=== PATIENT | male | born 1935 | race Caucasian/White ===

== ENCOUNTER 2017-03-11 18:29 | Emergency (ER) | payer MEDICARE, BC ==
--- NOTE | 2017-03-11 19:57 | ER Document Report ---
ED Medical Screen (RME) - General Chief Complaint: Choked/Choking Stated Complaint: WHEEZING Time Seen by Provider: 03/11/17 19:44 Notes: 81-year-old male here with complaints of left-sided chest wall pain (after slipping on the ice and falling on that side) over the past 7 days. Over the past few days he has had prog worsening cough prod of brown sputum. Has a prior h/o pneumonia. DNR. Per family, normally O2 sats are near 100% and he does not wear home oxygen. EXAM Mild tenderness to palpation of the left lateral chest wall along the mid axillary line more prominent superiorly along ribs 4 5 and 6 TRAVEL OUTSIDE OF THE [place] IN LAST 30 DAYS: No - Related Data Allergies/Adverse Reactions: onion Allergy (Verified 03/11/17 18:31) Home Medications: Current Home Medications Alprazolam 0.5 mg PO BID 03/11/17 [History] Aspirin [Adult Aspirin Regimen] 81 mg PO DAILY 03/11/17 [History] Aspirin [Aspirin 325 mg Tablet] 325 mg PO DAILY PRN 03/11/17 [History] Atenolol [Tenormin] 25 mg PO DAILY 03/11/17 [History] Cetirizine HCl [Zyrtec] 10 mg PO DAILY 03/11/17 [History] Diazepam 5 mg PO PRN PRN 03/11/17 [History] Famciclovir 250 mg PO BID 03/11/17 [History] Hyoscyamine Sulfate 0.125 mg PO AC 03/11/17 [History] Omeprazole 40 mg PO DAILY 03/11/17 [History] Past Medical History - Social History Chew tobacco use (# tins/day): No Frequency of alcohol use: None Drug Abuse: None - Past Medical History Cardiac Medical History: Reports: Hx Hypertension Pulmonary Medical History: Reports: Hx Pneumonia - ASPIRATION Neurological Medical History: Reports: Hx Cerebrovascular Accident - TIAs. 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 Psychiatric Medical History: Denies: Hx Depression Past Surgical History: Reports: Hx Abdominal Surgery - GTUBE REMOVED, Hx Cholecystectomy, Other - PEG tube and removal - Immunizations Hx Diphtheria, Pertussis, Tetanus Vaccination: Yes Physical Exam - Vital signs Vitals: Temp Pulse Resp BP Pulse Ox 98.5 F 62 24 H 141/74 H 91 L 03/11/17 18:54 03/11/17 18:54 03/11/17 18:54 03/11/17 18:54 03/11/17 18:54 Course - Vital Signs Vital signs: Temp Pulse Resp BP Pulse Ox 98.5 F 62 24 H 141/74 H 91 L 03/11/17 18:54 03/11/17 18:54 03/11/17 18:54 03/11/17 18:54 03/11/17 18:54
[2017-03-11 20:47] LABS: ABSOLUTE BASOPHILS # (AUTO) 0.1 10^3/uL (0.0-0.2); ABSOLUTE EOSINOPHILS # (AUTO) 0.1 10^3/uL (0.0-0.6); ABSOLUTE NEUT (AUTO) 12.6 10^3/uL (1.7-8.2); BASOPHILS % (AUTO) 0.7 % (0-2); EOSINOPHILS % (AUTO) 0.7 % (0-6); HEMATOCRIT 41.8 % (37.9-51.0); HEMOGLOBIN 14.1 g/dL (13.5-17.0); LYMPHOCYTES % (AUTO) 12.7 % (13-45); MEAN CORPUSCULAR HEMOGLOBIN 29.9 pg (27.0-33.4); MEAN CORPUSCULAR HGB CONC 33.6 g/dL (32.0-36.0); MEAN CORPUSCULAR VOLUME 89 fl (80-97); MONOCYTES % (AUTO) 6.1 % (3-13); PLATELET COUNT 244 10^3/uL (150-450); RED BLOOD COUNT 4.69 10^6/uL (4.35-5.55); RED CELL DISTRIBUTION WIDTH 12.9 % (11.5-14.0); SEGMENTED NEUTROPHILS % (AUTO) 79.8 % (42-78); TOTAL CELLS COUNTED % (AUTO) 100 %; WHITE BLOOD COUNT 15.9 10^3/uL (4.0-10.5)
--- NOTE | 2017-03-11 21:00 | RADIOLOGY REPORT (SQ) ---
EXAM DESCRIPTION: CT CHEST WITHOUT COMPLETED DATE/TIME: 03/11/2017 8:35 pm REASON FOR STUDY: s/p fall; eval rib fracture pneumonia COMPARISON: 02/10/2016. No current chest radiograph. TECHNIQUE: CT scan performed of the chest without intravenous contrast. Images reviewed with lung, soft tissue and bone windows. Reconstructed coronal and sagittal MPR images reviewed. All images st ored on PACS. All CT scanners at this facility use dose modulation, iterative reconstruction, and/or weight based d osing when appropriate to reduce radiation dose to as low as reasonably achievable (ALARA). [facility]: Dose Right [facility]: CareDose [facility]: Dose Right [facility]: Teradose 4D [facility]: Smart Jimmy Fairly RADIATION DOSE: CT Rad equipment meets quality standard of care and radiation dose reduction techniq ues were employed. CTDIvol: 12.2 mGy. DLP: 491 mGy-cm. mGy. LIMITATIONS: No technical limitations. FINDINGS: LUNGS AND PLEURA: Diffuse patchy ground-glass opacities throughout both lungs. No pneumot horax. HILAR AND MEDIASTINAL STRUCTURES: No identified masses or abnormal nodes. No obvious aneurysm. HEART AND VASCULAR STRUCTURES: Aortic ectasia. Extensive coronary artery calcification. UPPER ABDOMEN: No significant findings. Limited exam. THYROID AND OTHER SOFT TISSUES: No masses. No adenopathy. BONES: No significant finding. HARDWARE: None in the chest. OTHER: No other significant findings. IMPRESSION: Diffuse patchy ground-glass opacities throughout both lungs. Consistent with pneumonia. Extensive coronary artery calcification. No displaced fractures. TECHNICAL DOCUMENTATION: JOB ID: [id number] Quality ID # [id number]: Final reports with documentation of one or more dose reduction techniques (e.g., Au tomated exposure control, adjustment of the mA and/or kV according to patient size, use of iterative reconstruction technique) 2010 [employer]- All Rights Reserved
[2017-03-11 21:08] LABS: ANION GAP 12 (5-19); BLOOD UREA NITROGEN 19 mg/dL (7-20); CALCIUM 9.8 mg/dL (8.4-10.2); CARBON DIOXIDE 28 mmol/L (22-30); CHLORIDE 99 mmol/L (98-107); GLUCOSE 121 mg/dL (75-110); POTASSIUM 4.1 mmol/L (3.6-5.0); SODIUM 139.2 mmol/L (137-145)
[2017-03-11] MEDS ORDERED: CEFTRIAXONE 1 GM/D5W RTU 1 GM/50 ML RTUPB IV ONE (22:55)
--- NOTE | 2017-03-11 23:11 | ER Document Report ---
ED General - General Chief Complaint: Choked/Choking Stated Complaint: WHEEZING Time Seen by Provider: 03/11/17 19:44 Mode of Arrival: Ambulatory Information source: Patient Notes: 81-year-old male presents with complaints of cough over the past for 5 days with productive sputum. Family notes patient looks well is in no distress, they deny any fevers or chills denies any shortness of breath difficulty breathing TRAVEL OUTSIDE OF THE [place] IN LAST 30 DAYS: No - HPI Onset: Last week Onset/Duration: Persistent Quality of pain: Achy - Patient did fall and has left anterior rib pain Severity: Mild Pain Level: 1 Associated symptoms: Productive cough Exacerbated by: Denies Relieved by: Denies Similar symptoms previously: No Recently seen / treated by doctor: No - Related Data Allergies/Adverse Reactions: onion Allergy (Verified 03/11/17 18:31) Home Medications: Current Home Medications Alprazolam 0.5 mg PO BID 03/11/17 [History] Aspirin [Adult Aspirin Regimen] 81 mg PO DAILY 03/11/17 [History] Aspirin [Aspirin 325 mg Tablet] 325 mg PO DAILY PRN 03/11/17 [History] Atenolol [Tenormin] 25 mg PO DAILY 03/11/17 [History] Cetirizine HCl [Zyrtec] 10 mg PO DAILY 03/11/17 [History] Diazepam 5 mg PO PRN PRN 03/11/17 [History] Famciclovir 250 mg PO BID 03/11/17 [History] Hyoscyamine Sulfate 0.125 mg PO AC 03/11/17 [History] Omeprazole 40 mg PO DAILY 03/11/17 [History] Past Medical History - Social History Smoking Status: Former Smoker Cigarette use (# per day): No Chew tobacco use (# tins/day): No Smoking Education Provided: No Frequency of alcohol use: None Drug Abuse: None Family History: DM, Hypertension Patient has suicidal ideation: No Patient has homicidal ideation: No - Past Medical History Cardiac Medical History: Reports: Hx Hypertension Pulmonary Medical History: Reports: Hx Pneumonia - ASPIRATION Neurological Medical History: Reports: Hx Cerebrovascular Accident - TIAs. 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 Denies recent illness. EENT: Denies eye, ear, throat, or mouth pain or symptoms. Denies nasal or sinus congestion or discharge. Denies throat, tongue, or mouth swelling or difficulty swallowing. CARDIOVASCULAR: Denies chest pain. Denies palpitations or racing or irregular heart beat. Denies ankle edema. RESPIRATORY: Admits to productive cough GASTROINTESTINAL: Admits to dysphasia GENITOURINARY: Denies difficulty urinating, painful urination, burning, frequency, blood in urine, or discharge. MUSCULOSKELETAL: Denies back or neck pain or stiffness. Denies joint pain or swelling. SKIN: Denies rash, lesions or sores. HEMATOLOGIC : Denies easy bruising or bleeding. LYMPHATIC: Denies swollen, enlarged glands. NEUROLOGICAL: Denies confusion or altered mental status. Denies passing out or loss of consciousness. Denies dizziness or lightheadedness. Denies headache. Denies weakness or paralysis or loss of use of either side. Denies problems with gait or speech. Denies sensory loss, numbness, or tingling. Denies seizures. PSYCHIATRIC: Denies anxiety or stress. Denies depression, suicidal ideation, or homicidal ideation. ALL OTHER SYSTEMS REVIEWED AND NEGATIVE. Dictation was performed using [employer] voice recognition software PHYSICAL EXAMINATION: GENERAL: Well-appearing, well-nourished and in no acute distress. HEAD: Atraumatic, normocephalic. EYES: Pupils equal round and reactive to light, extraocular movements intact, sclera anicteric, conjunctiva are normal. ENT: Nares patent, oropharynx clear without exudates. Moist mucous membranes. NECK: Normal range of motion, supple without lymphadenopathy LUNGS: Intermittent crackles all throughout HEART: Regular rate and rhythm without murmurs ABDOMEN: Soft, nontender, nondistended abdomen. No guarding, no rebound. No masses appreciated. Musculoskeletal: Normal range of motion, no pitting or edema. No cyanosis. NEUROLOGICAL: Cranial nerves grossly intact. Normal speech, normal gait. Normal sensory, motor exams PSYCH: Normal mood, normal affect. SKIN: Warm, Dry, normal turgor, no rashes or lesions noted. Physical Exam - Vital signs Vitals: Temp Pulse Resp BP Pulse Ox 98.5 F 62 24 H 141/74 H 91 L 03/11/17 18:54 03/11/17 18:54 03/11/17 18:54 03/11/17 18:54 03/11/17 18:54 Course - Re-evaluation Re-evalutation: 03/11/17 23:09 Patient looks extremely well, he is noted to have a white count and was initially satting 91% however when I walk into the room is actually satting 96% no distress, I discussed with family regarding admission versus discharge, they preferred to be discharged and I believe this is appropriate, he has 24-hour care which will give him very close follow-up at home, he will be given antibiotics here and will be treated for his pneumonia. We spoke about nosocomial infections and I believe he would worsen while in the hospital. Given that he is not hypoxic he looks well and wishes to be discharged home I will discharge him with close follow-up and very strict return precautions. Patient will also be given a GI specialist for his esophageal spasms 03/12/17 00:56 After performing a Medical Screening Examination, I estimate there is LOW risk for ACUTE CORONARY SYNDROME, PULMONARY EMBOLI, RESPIRATORY FAILURE, SEPSIS OR MENINGITIS, thus I consider the discharge disposition reasonable. I have reevaluated this patient multiple times and no significant life threatening changes are noted. The patient and I have discussed the diagnosis and risks, and we agree with discharging home with close follow-up. We also discussed returning to the Emergency Department immediately if new or worsening symptoms occur. We have discussed the symptoms which are most concerning (e.g., changing or worsening pain, trouble swallowing or breathing, neck stiffness, fever) that necessitate immediate return. - Vital Signs Vital signs: Temp Pulse Resp BP Pulse Ox 98.5 F 62 23 H 147/85 H 94 03/11/17 18:54 03/11/17 18:54 03/11/17 23:01 03/11/17 23:01 03/11/17 23:01 - Laboratory Result Diagrams: 03/11/17 20:23 03/11/17 20:23 Laboratory results interpreted by me: 03/11/17 03/11/17 20:23 20:23 WBC 15.9 H Seg Neutrophils % 79.8 H Lymphocytes % 12.7 L Absolute Neutrophils 12.6 H Glucose 121 H - Diagnostic Test Radiology reviewed: Image reviewed, Reports reviewed Discharge - Discharge Clinical Impression: Bilateral pneumonia Qualifiers: Pneumonia type: due to Escherichia coli Lung location: lower lobe of lung Qualified Code(s): J15.5 - Pneumonia due to Escherichia coli Dysphagia Qualifiers: Dysphagia type: esophageal phase Qualified Code(s): R13.10 - Dysphagia, unspecified Condition: Stable Disposition: HOME, SELF-CARE Instructions: Dysphagia (OM) Prescriptions: Levofloxacin [Levaquin 500 mg Tablet] 500 mg PO DAILY #10 tablet Referrals: DANIELLE MOTLEY MD [ACTIVE STAFF] - Follow up tomorrow
[2017-03-11] MEDS ORDERED: CEFTRIAXONE INJ 1000 MG VIAL IM ONE (23:45)
[2017-03-11] MEDS ORDERED: LIDOCAINE 1% INJ-PF (10 MG/ML) 30 ML SDV INFIL ONE (23:45)
[2017-03-11 23:53] VITALS: BP 147/85
== END 2017-03-11 23:55 | disposition home or self-care (01) ==
LOC: ER 18:29
DX: J15.5 Pneumonia due to Escherichia coli (principal); R13.10 Dysphagia, unspecified; T17.908A Unspecified foreign body in respiratory tract, part unspecified causing other injury, initial encounter; R05 Cough; R07.81 Pleurodynia; X58.XXXA Exposure to other specified factors, initial encounter; Z79.899 Other long term (current) drug therapy; Z87.891 Personal history of nicotine dependence
CPT/HCPCS: 99285; 96372; 36415; 87040; 83605; 85025; 80048; 71250; J3490; J0696

== ENCOUNTER 2017-03-13 19:17 | Inpatient (IN) | payer MEDICARE, BC ==
[2017-03-13 20:46] LABS: VENOUS BLOOD BASE EXCESS 2.8 mmol/L; VENOUS BLOOD HCO3 30.8 mmol/L (20-32); VENOUS BLOOD PCO2 61.7 mmHg (35-63); VENOUS BLOOD PH 7.32 (7.30-7.42)
[2017-03-13 21:21] LABS: PROTHROMBIN TIME 13.9 SEC (11.4-15.4)
[2017-03-13] MEDS ORDERED: PIPERACILLIN/TAZOBACTAM 3.375 GM VIAL IV ONE (21:25)
--- NOTE | 2017-03-13 21:26 | RADIOLOGY REPORT (SQ) ---
EXAM DESCRIPTION: CHEST SINGLE VIEW COMPLETED DATE/TIME: 03/13/2017 9:08 pm REASON FOR STUDY: SEPSIS PROTOCOL COMPARISON: Chest CT dated 03/11/2017. EXAM PARAMETERS: NUMBER OF VIEWS: One view. TECHNIQUE: Single frontal radiographic view of the chest acquired. RADIATION DOSE: NA LIMITATIONS: None. FINDINGS: LUNGS AND PLEURA: Patchy opacities in both lungs with more focal infiltrate in the right u pper lobe. No pleural effusion. No pneumothorax. MEDIASTINUM AND HILAR STRUCTURES: No masses. Contour normal. HEART AND VASCULAR STRUCTURES: Heart normal in size. Normal vasculature. BONES: No acute findings. HARDWARE: Clips in the upper abdomen. OTHER: No other significant finding. IMPRESSION: PATCHY INFILTRATES CONSISTENT WITH PNEUMONIA, PARTICULARLY IN THE RIGHT UPPER LOBE. SIM ILAR APPEARANCE TO THE PREVIOUS CT TECHNICAL DOCUMENTATION: JOB ID: [id number]- All Rights Reserved
[2017-03-13 21:27] LABS: ABSOLUTE BASOPHILS # (AUTO) 0.1 10^3/uL (0.0-0.2); ABSOLUTE EOSINOPHILS # (AUTO) 0.1 10^3/uL (0.0-0.6); ABSOLUTE LYMPHOCYTES (AUTO) 0.9 10^3/uL (0.5-4.7); ABSOLUTE MONOCYTES (AUTO) 0.8 10^3/uL (0.1-1.4); ABSOLUTE NEUT (AUTO) 11.7 10^3/uL (1.7-8.2); BASOPHILS % (AUTO) 0.4 % (0-2); EOSINOPHILS % (AUTO) 0.7 % (0-6); HEMATOCRIT 46.9 % (37.9-51.0); HEMOGLOBIN 15.6 g/dL (13.5-17.0); LYMPHOCYTES % (AUTO) 6.4 % (13-45); MEAN CORPUSCULAR HGB CONC 33.3 g/dL (32.0-36.0); MEAN CORPUSCULAR VOLUME 90 fl (80-97); MONOCYTES % (AUTO) 5.7 % (3-13); PLATELET COUNT 333 10^3/uL (150-450); RED CELL DISTRIBUTION WIDTH 13.2 % (11.5-14.0); SEGMENTED NEUTROPHILS % (AUTO) 86.8 % (42-78); TOTAL CELLS COUNTED % (AUTO) 100 %; WHITE BLOOD COUNT 13.5 10^3/uL (4.0-10.5)
--- NOTE | 2017-03-13 21:31 | ER Document Report ---
ED General - General Stated Complaint: DIFFICULTY BREATHING Time Seen by Provider: 03/13/17 21:16 Mode of Arrival: Medic Information source: Patient, Relative - daughter [place] TRAVEL OUTSIDE OF THE [place] IN LAST 30 DAYS: No - HPI Patient complains to provider of: sob/pneumonia Onset: Other - 3 days ago Onset/Duration: Gradual, Worse Quality of pain: No pain Associated symptoms: Chills, Productive cough, Shortness of breath, Weakness Exacerbated by: Movement, Coughing Relieved by: Denies Similar symptoms previously: Yes - Here tuesday night dxed with PNA Recently seen / treated by doctor: Yes - as above - Related Data Allergies/Adverse Reactions: onion Allergy (Verified 03/11/17 18:31) Past Medical History - General Information source: Patient, Relative - Social History Smoking Status: Former Smoker - quit 1980s Lives with: Family - with 24 hour care Family History: DM, Hypertension Patient has suicidal ideation: No Patient has homicidal ideation: No - Past Medical History Cardiac Medical History: Reports: Hx Hypertension Pulmonary Medical History: Reports: Hx Pneumonia - ASPIRATION Neurological Medical History: Reports: Hx Cerebrovascular Accident - TIAs. 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 Psychiatric Medical History: Denies: Hx Depression Past Surgical History: Reports: Hx Abdominal Surgery - GTUBE REMOVED, Hx Cholecystectomy, Other - PEG tube and removal - Immunizations Hx Diphtheria, Pertussis, Tetanus Vaccination: Yes Review of Systems - Review of Systems Constitutional: Weakness, Recent illness EENT: Nose congestion Cardiovascular: No symptoms reported Respiratory: No symptoms reported Gastrointestinal: No symptoms reported Genitourinary: No symptoms reported Male Genitourinary: No symptoms reported Skin: No symptoms reported Hematologic/Lymphatic: No symptoms reported Neurological/Psychological: No symptoms reported Physical Exam - Vital signs Vitals: Pulse ox 96% on 2 L oxygen. Heart rate is 96 normal sinus rhythm was actually respiratory rate 24 - Notes Notes: PHYSICAL EXAMINATION: GENERAL: Elderly male in no apparent distress but appears ill HEAD: Atraumatic, normocephalic. 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 Right extraocular muscles intact pupil reactive no subconjunctival hemorrhage or scleral icterus. ENT: Nares patent, oropharynx clear without exudates. Moist mucous membranes. NECK: Normal range of motion, supple without lymphadenopathy LUNGS: Bilateral rhonchi. Thick yellowish sputum. HEART: Regular rate and rhythm without murmurs ABDOMEN: Soft, nontender, nondistended abdomen. No guarding, no rebound. No masses appreciated. Musculoskeletal: Normal range of motion, pitting edema lateral lower extremities. No cyanosis. NEUROLOGICAL: Cranial nerves grossly intact. Normal speech. Normal sensory, motor exams PSYCH: Normal mood, normal affect. SKIN: Warm, Dry, normal turgor, no rashes or lesions noted. Course - Re-evaluation Re-evalutation: 03/13/17 22:[address] Guzman here to see him. - Laboratory Result Diagrams: 03/13/17 21:15 03/13/17 21:15 Laboratory results interpreted by me: 03/13/17 03/13/17 03/13/17 20:20 20:34 21:15 WBC Seg Neutrophils % Lymphocytes % Absolute Neutrophils Sodium 136.7 L Chloride 94 L Glucose 143 H POC Glucose 123 H Lactic Acid 2.3 H Calcium 10.5 H Total Bilirubin 1.5 H Direct Bilirubin 0.5 H Alkaline Phosphatase 128 H Total Protein 8.5 H 03/13/17 21:15 WBC 13.5 H Seg Neutrophils % 86.8 H Lymphocytes % 6.4 L Absolute Neutrophils 11.7 H Sodium Chloride Glucose POC Glucose Lactic Acid Calcium Total Bilirubin Direct Bilirubin Alkaline Phosphatase Total Protein - Diagnostic Test Radiology reviewed: Image reviewed, Reports reviewed Radiology results interpreted by me: 03/13/17 21:34 b/l pneumonia Discharge - Discharge Clinical Impression: Pneumonia Condition: Stable Disposition: ADMITTED INPATIENT Admitting Provider: Hospitalist - Dr. Guzman Unit Admitted: Telemetry
[2017-03-13] MEDS ORDERED: IPRATROPIUM/ALBUTEROL 0.5-2.5 MG/3 ML AMPUL NEB ONE (21:35)
[2017-03-13 21:49] LABS: ALANINE AMINOTRANSFERASE 34 U/L (21-72); ALBUMIN 4.7 g/dL (3.5-5.0); ALKALINE PHOSPHATASE 128 U/L (38-126); ANION GAP 14 (5-19); ASPARTATE AMINO TRANSFERASE 40 U/L (17-59); BILIRUBIN,DIRECT 0.5 mg/dL (0.0-0.4); BILIRUBIN,TOTAL 1.5 mg/dL (0.2-1.3); BLOOD UREA NITROGEN 16 mg/dL (7-20); CALCIUM 10.5 mg/dL (8.4-10.2); CARBON DIOXIDE 29 mmol/L (22-30); CHLORIDE 94 mmol/L (98-107); GLUCOSE 143 mg/dL (75-110); POTASSIUM 4.7 mmol/L (3.6-5.0); SODIUM 136.7 mmol/L (137-145); TOTAL PROTEIN 8.5 g/dL (6.3-8.2)
[2017-03-13] MEDS ORDERED: NORMAL SALINE 1000 ML 1,000 ML IV PRN (21:51)
--- NOTE | 2017-03-13 22:09 | EKG REPORT ---
SEVERITY:- ABNORMAL ECG - SINUS TACHYCARDIA ATRIAL PREMATURE COMPLEXES BORDERLINE ST DEPRESSION, LATERAL LEADS : Confirmed by: Lorenzo Rhoades MD 13-Mar-2017 22:08:40
[2017-03-13] MEDS ORDERED: GLUCAGON,HUMAN RECOMB 1 MG INJ IM PRN (22:26)
[2017-03-13] MEDS ORDERED: DEXTROSE 50%-WATER 25 GM/50 ML DISP.SYRIN IV PRN ×2 (22:26)
[2017-03-13] MEDS ORDERED: DEXTROSE 40% GEL 15 GM TUBE PO PRN ×2 (22:26)
[2017-03-13] MEDS ORDERED: INSULIN LISPRO 100 UNIT/ML 3 ML VIAL SUBCUT PRN (22:26)
[2017-03-13] MEDS: GUAIFENESIN 600 MG TABLET.SA PO SCH (22:52)
[2017-03-13] MEDS: LIDOCAINE 5% (700 MG) TRANSDERMAL ADH..PATCH TP SCH (23:00)
[2017-03-13] MEDS: ACETAMINOPHEN 325 MG TABLET PO PRN (23:07)
[2017-03-13] MEDS ORDERED: ACETAMINOPHEN 325 MG TABLET PO ONE (23:19)
[2017-03-13] MEDS ORDERED: KETOROLAC TROMETHAMINE INJ/PF 30 MG/1 ML SDV IV ONE (23:19)
[2017-03-13 23:24] LABS: APPEARANCE,URINE CLEAR; BILIRUBIN,URINE NEGATIVE (NEGATIVE); COLOR,URINE YELLOW; GLUCOSE, URINE NEGATIVE (NEGATIVE); KETONES,URINE 20 mg/dL (NEGATIVE); LEUKOCYTE ESTERASE,URINE NEGATIVE (NEGATIVE); NITRITE,URINE NEGATIVE (NEGATIVE); PROTEIN,URINE 100 mg/dL (NEGATIVE); URINE SPECIFIC GRAVITY 1.015
[2017-03-14] MEDS ORDERED: PIPERACILLIN SODIUM/TAZOBACTAM 3.375 GM in NORMAL SALINE 100 ML IV SCH ×2
--- NOTE | 2017-03-14 00:49 | PDOC H&P ---
History of Present Illness Admission Date/PCP: 03/13/17 21:39 Dr. Durand History of Present Illness: IKE MILLAN is a 81 year old male with past medical history of CVA and residual dysphasia, former diabetic, hypertension, and CMV infection of the eye who presents with shortness of breath. Per family patient fell on Tuesday and hit his head. And since that time he has been going downhill according to them. 2 days later he began complaining of left lower chest pain and some shortness of breath. He was brought to the emergency department and diagnosed with pneumonia given Levaquin and returned home. He has had no fevers or chills per the family but here in the emergency department his temperature is 103.9. He has an active cough. Patient continued to deteriorate resulting in need to re-presented to the emergency department now admission for left lower lobe pneumonia and sepsis. Past Medical History Cardiac Medical History: Reports: Hyperlipidema, Hypertension Pulmonary Medical History: Reports: Pneumonia - ASPIRATION Neurological Medical History: Denies: Seizures Endocrine Medical History: Reports: Diabetes Mellitus Type 2 GI Medical History: Reports: Gastroesophageal Reflux Disease Musculoskeltal Medical History: Reports: Arthritis - Osteoarthritis of both hips causing ambulatory dysfunction Psychiatric Medical History: Denies: Depression Past Surgical History Past Surgical History: Reports: Cholecystectomy, Other - PEG tube and removal eye surgery--corneal transplant Social History Lives with: Family - with 24 hour care Smoking Status: Former Smoker - quit 1980s Frequency of Alcohol Use: None Hx Recreational Drug Use: Yes Drugs: None Hx Prescription Drug Abuse: No - Advance Directive Resuscitation Status: Do Not Resuscitate Surrogate healthcare decision maker:: Madison Harding Family History Family History: DM, Hypertension Parental Family History Reviewed: Yes Children Family History Reviewed: Yes Sibling(s) Family History Reviewed.: Yes Medication/Allergy Home Medications: Alprazolam 0.5 mg PO BID 03/11/17 Aspirin [Adult Aspirin Regimen] 81 mg PO DAILY 03/11/17 Aspirin [Aspirin 325 mg Tablet] 325 mg PO DAILY PRN 03/11/17 Atenolol [Tenormin] 25 mg PO DAILY 03/11/17 Cetirizine HCl [Zyrtec] 10 mg PO DAILY 03/11/17 Diazepam 5 mg PO PRN PRN 03/11/17 Famciclovir 250 mg PO BID 03/11/17 Hyoscyamine Sulfate 0.125 mg PO AC 03/11/17 Levofloxacin [Levaquin 500 mg Tablet] 500 mg PO DAILY #10 tablet 03/11/17 Omeprazole 40 mg PO DAILY 03/11/17 Allergies/Adverse Reactions: onion Allergy (Verified 03/11/17 18:31) Review of Systems Constitutional: PRESENT: fatigue. ABSENT: chills, fever(s), headache(s), weight gain, weight loss Eyes: ABSENT: visual disturbances Ears: ABSENT: hearing changes Cardiovascular: PRESENT: chest pain. ABSENT: dyspnea on exertion, edema, orthropnea, palpitations Respiratory: PRESENT: cough, dyspnea, sputum. ABSENT: hemoptysis Gastrointestinal: ABSENT: abdominal pain, constipation, diarrhea, hematemesis, hematochezia, nausea, vomiting Genitourinary: ABSENT: dysuria, hematuria Musculoskeletal: ABSENT: joint swelling Integumentary: ABSENT: rash, wounds Neurological: ABSENT: abnormal gait, abnormal speech, confusion, dizziness, focal weakness, syncope Psychiatric: ABSENT: anxiety, depression, homidical ideation, suicidal ideation Endocrine: ABSENT: cold intolerance, heat intolerance, polydipsia, polyuria Hematologic/Lymphatic: ABSENT: easy bleeding, easy bruising Physical Exam Vital Signs: Temp Pulse Resp BP Pulse Ox 98.4 F 32 H 169/96 H 92 03/13/17 19:24 03/13/17 22:00 03/13/17 19:38 03/13/17 21:00 General appearance: PRESENT: mild distress, well-developed Head exam: PRESENT: atraumatic, normocephalic Eye exam: PRESENT: conjunctiva pink, EOMI. ABSENT: PERRLA - Left eye corneal opacity, scleral icterus Ear exam: PRESENT: normal external ear exam Mouth exam: PRESENT: dry mucosa, tongue midline, other - whhitish plaques on tongue Neck exam: ABSENT: JVD, lymphadenopathy, thyromegaly, tracheal deviation Respiratory exam: PRESENT: chest wall tenderness - Left-sided, rhonchi - Diffuse , predominantly left lower lobe, tachypnea, wheezes. ABSENT: rales, unlabored Cardiovascular exam: PRESENT: RRR, +S1, +S2, systolic murmur. ABSENT: diastolic murmur, rubs Pulses: PRESENT: normal dorsalis pedis pul Vascular exam: PRESENT: normal capillary refill GI/Abdominal exam: PRESENT: normal bowel sounds, soft. ABSENT: distended, guarding, mass, organolmegaly, rebound, tenderness Rectal exam: PRESENT: deferred Extremities exam: PRESENT: full ROM. ABSENT: calf tenderness, clubbing, pedal edema Neurological exam: PRESENT: alert, awake, oriented to person, oriented to place , oriented to situation, CN II-XII grossly intact. ABSENT: motor sensory deficit Psychiatric exam: PRESENT: appropriate affect, normal mood. ABSENT: homicidal ideation, suicidal ideation Skin exam: PRESENT: dry, intact, warm. ABSENT: cyanosis, rash Results Laboratory Results: 03/13/17 03/13/17 03/13/17 20:20 20:20 20:20 WBC Hgb Plt Count INR 1.00 VBG pH 7.32 Sodium Potassium Chloride Carbon Dioxide Anion Gap BUN Creatinine Glucose POC Glucose Lactic Acid 2.3 H Calcium Total Bilirubin Direct Bilirubin AST ALT Alkaline Phosphatase Total Protein Albumin Ur Leukocyte Esterase Urine WBC (Auto) 03/13/17 03/13/17 03/13/17 21:15 21:15 22:50 WBC 13.5 H Hgb 15.6 Plt Count 333 INR VBG pH Sodium 136.7 L Potassium 4.7 Chloride 94 L Carbon Dioxide 29 Anion Gap 14 BUN 16 Creatinine 0.91 Glucose 143 H POC Glucose 138 H Lactic Acid Calcium 10.5 H Total Bilirubin 1.5 H Direct Bilirubin 0.5 H AST 40 ALT 34 Alkaline Phosphatase 128 H Total Protein 8.5 H Albumin 4.7 Ur Leukocyte Esterase Urine WBC (Auto) 03/13/17 23:06 WBC Hgb Plt Count INR VBG pH Sodium Potassium Chloride Carbon Dioxide Anion Gap BUN Creatinine Glucose POC Glucose Lactic Acid Calcium Total Bilirubin Direct Bilirubin AST ALT Alkaline Phosphatase Total Protein Albumin Ur Leukocyte Esterase NEGATIVE Urine WBC (Auto) 4 Assessment & Plan - Diagnosis (1) Sepsis Qualifiers: Sepsis type: sepsis due to unspecified organism Qualified Code(s): A41.9 - Sepsis, unspecified organism Is this a current diagnosis for this admission?: Yes Plan: Secondary to community-acquired pneumonia, however there is concern for aspiration pneumonia as this patient has had a history of dysphagia requiring PEG tube placement which has been removed. Patient has been bolused 20mL/kg. Maintain map greater than 65 Judicious of fluid in light of patient's advanced age Criteria met on admission. Selected Entries 03/13/17 03/13/17 03/13/17 19:24 21:00 22:00 Temperature Respiratory 32 H Rate O2 Sat by Pulse 92 Oximetry Oxygen Delivery Nasal Cannula Method ( includes room air) 03/13/17 22:40 Temperature 103.9 F H Respiratory Rate O2 Sat by Pulse Oximetry Oxygen Delivery Method ( includes room air) 03/13/17 03/13/17 20:20 21:15 WBC 13.5 H Lactic Acid 2.3 H (2) Pneumonia Qualifiers: Pneumonia type: aspiration pneumonia Laterality: bilateral Lung location : upper lobe of lung Is this a current diagnosis for this admission?: Yes Plan: Likely secondary to community-acquired pneumonia, but patient has a history of aspiration and have concerns that this may represent a further aspiration pneumonia. Will place patient on Zosyn for this. Place patient on scheduled nebulized treatments and re-evaluate for improvement. PRN Xopenex Obtain sputum culture (3) Acute hypoxemic respiratory failure Is this a current diagnosis for this admission?: Yes Plan: Continue oxygen to maintain saturation greater than 93%. Will use BiPAP if needed. Patient currently requiring 3 L of oxygen. (4) Hyponatremia Is this a current diagnosis for this admission?: Yes Plan: Likely secondary to intravascular volume depletion. Will repeat in a.m. (5) CVA, old, dysphagia Is this a current diagnosis for this admission?: Yes Plan: Concern for reemergence of his dysphagia (6) Diabetes mellitus Qualifiers: Diabetes mellitus type: type 2 Diabetes mellitus complication status: with unspecified complications Diabetes mellitus jail insulin use: without moth exterminator use Qualified Code(s): E11.8 - Type 2 diabetes mellitus with unspecified complications Is this a current diagnosis for this admission?: Yes Plan: Family reports the patient is no longer taking anything for his diabetes mellitus will place patient on Accu-Cheks and sliding scale insulin (7) Gastroesophageal reflux disease Qualifiers: Esophagitis presence: esophagitis presence not specified Qualified Code(s) : K21.9 - Gastro-esophageal reflux disease without esophagitis Is this a current diagnosis for this admission?: Yes (8) Hypertension Qualifiers: Hypertension type: essential hypertension Qualified Code(s): I10 - Essential (primary) hypertension Is this a current diagnosis for this admission?: Yes (9) Do not resuscitate Is this a current diagnosis for this admission?: Yes Plan: Mariana Wallace is surrogate decision-maker - Time Time Spent: 30 to 50 Minutes Medications reviewed and adjusted accordingly: Yes Anticipated discharge: Home with Homehealth Within: Other - Upon improvement of symptomatology - Inpatient Certification Based on my medical assessment, after consideration of the patient's comorbidities, presenting symptoms, or acuity I expect that the services needed warrant INPATIENT care.: Yes I certify that my determination is in accordance with my understanding of Medicare's requirements for reasonable and necessary INPATIENT services [42 CFR 412.3e].: Yes Medical Necessity: Need For IV Fluids, Need For Continuous Telemetry Monitoring , Need for Nebulizer Therapy and Monitoring of Response, Need for IV Antibiotics Post Hospital Care: D/C Fruit Inspector Documentation
[2017-03-14 05:19] LABS: ABSOLUTE BASOPHILS # (AUTO) 0.1 10^3/uL (0.0-0.2); ABSOLUTE LYMPHOCYTES (AUTO) 1.4 10^3/uL (0.5-4.7); ABSOLUTE MONOCYTES (AUTO) 1.3 10^3/uL (0.1-1.4); ABSOLUTE NEUT (AUTO) 13.3 10^3/uL (1.7-8.2); BASOPHILS % (AUTO) 0.4 % (0-2); HEMOGLOBIN 14.5 g/dL (13.5-17.0); LYMPHOCYTES % (AUTO) 8.9 % (13-45); MEAN CORPUSCULAR HEMOGLOBIN 30.2 pg (27.0-33.4); MEAN CORPUSCULAR HGB CONC 33.7 g/dL (32.0-36.0); MEAN CORPUSCULAR VOLUME 90 fl (80-97); MONOCYTES % (AUTO) 8.4 % (3-13); PLATELET COUNT 269 10^3/uL (150-450); RED BLOOD COUNT 4.81 10^6/uL (4.35-5.55); RED CELL DISTRIBUTION WIDTH 13.2 % (11.5-14.0); SEGMENTED NEUTROPHILS % (AUTO) 82.3 % (42-78); TOTAL CELLS COUNTED % (AUTO) 100 %; WHITE BLOOD COUNT 16.1 10^3/uL (4.0-10.5)
[2017-03-14 05:36] LABS: ANION GAP 11 (5-19); BLOOD UREA NITROGEN 21 mg/dL (7-20); CALCIUM 9.7 mg/dL (8.4-10.2); CARBON DIOXIDE 27 mmol/L (22-30); CHLORIDE 98 mmol/L (98-107); GLUCOSE 148 mg/dL (75-110); POTASSIUM 4.4 mmol/L (3.6-5.0); SODIUM 136.4 mmol/L (137-145)
[2017-03-14] MEDS: BENZONATATE 100 MG CAPSULE PO SCH ×3 (05:59→21:18)
[2017-03-14] MEDS ORDERED: PIPERACILLIN/TAZOBACTAM 3.375 GM VIAL IV ONE (06:00)
[2017-03-14] MEDS: ENOXAPARIN SODIUM INJ 30 MG/0.3 ML DISP.SYRIN SUBCUT SCH (09:19)
[2017-03-14] MEDS: GUAIFENESIN 600 MG TABLET.SA PO SCH ×2 (09:19→21:16)
[2017-03-14] MEDS: IPRATROPIUM/ALBUTEROL 0.5-2.5 MG/3 ML AMPUL NEB SCH ×4 (09:26→21:18)
[2017-03-14] MEDS ORDERED: NORMAL SALINE 1000 ML 1,000 ML IV PRN (09:31)
--- NOTE | 2017-03-14 09:39 | PDOC PROGRESS REPORT ---
Subjective Progress Note for:: 03/14/17 Subjective:: Daughter was sitting at bedside stating that patient is resting comfortably. Daughter reports that patient fell a few days ago and since then patient has been declining. Daughter states that she has noticed on multiple encounters that he coughs after drinking and eating substances. Daughter reports that patient's phlegm is extremely thick. Daughter reports that patient coughs up tremendous amounts of phlegm that is whitish brown in color. Patient was sleeping during my encounter. Reason For Visit: PNEUMONIA, ACUTE HYPOXEMIC RESPIRATORY FAILURE Physical Exam Vital Signs: Temp Pulse Resp BP Pulse Ox 97.9 F 17 96/59 L 95 03/14/17 07:31 03/14/17 07:31 03/14/17 07:31 03/14/17 07:31 Intake & Output 03/13/17 03/14/17 03/15/17 06:59 06:59 06:59 Output Total 30 Balance -30 Weight 74.9 kg General appearance: PRESENT: other - Sleeping with nasal cannula in place mouth opened appear to be in no acute distress Head exam: PRESENT: atraumatic, normocephalic Eye exam: PRESENT: other - Eyelids closed patient sleeping Ear exam: PRESENT: normal external ear exam Mouth exam: PRESENT: moist, tongue midline Neck exam: ABSENT: carotid bruit, JVD, lymphadenopathy, thyromegaly Respiratory exam: PRESENT: other - Positive for good breath sounds heard anteriorly however diminished at bases bilaterally, mild accessory muscle use Cardiovascular exam: PRESENT: RRR. ABSENT: diastolic murmur, rubs, systolic murmur Pulses: PRESENT: normal dorsalis pedis pul Vascular exam: PRESENT: normal capillary refill GI/Abdominal exam: PRESENT: normal bowel sounds, soft. ABSENT: distended, guarding, mass, organolmegaly, rebound, tenderness Rectal exam: PRESENT: deferred Extremities exam: ABSENT: calf tenderness, clubbing, pedal edema Neurological exam: PRESENT: other - Sleeping Psychiatric exam: PRESENT: appropriate affect, normal mood, other - Sleeping. ABSENT: homicidal ideation, suicidal ideation Skin exam: PRESENT: dry, intact, warm. ABSENT: cyanosis, rash Results Laboratory Results: 03/14/17 05:10 03/14/17 05:10 03/13/17 03/14/17 03/14/17 23:06 00:53 05:10 WBC 16.1 H RBC 4.81 Hgb 14.5 Hct 43.0 MCV 90 MCH 30.2 MCHC 33.7 RDW 13.2 Plt Count 269 Seg Neutrophils % 82.3 H Lymphocytes % 8.9 L Monocytes % 8.4 Eosinophils % 0.0 Basophils % 0.4 Absolute Neutrophils 13.3 H Absolute Lymphocytes 1.4 Absolute Monocytes 1.3 Absolute Eosinophils 0.0 Absolute Basophils 0.1 Sodium Potassium Chloride Carbon Dioxide Anion Gap BUN Creatinine Est GFR ( Amer) Est GFR (Non-Af Amer) Glucose Lactic Acid 1.4 Calcium Urine Color YELLOW Urine Appearance CLEAR Urine pH 6.0 Ur Specific [place] 1.015 Urine Protein 100 H Urine Glucose (UA) NEGATIVE Urine Ketones 20 H Urine Blood NEGATIVE Urine Nitrite NEGATIVE Ur Leukocyte Esterase NEGATIVE Urine WBC (Auto) 4 Urine RBC (Auto) 1 03/14/17 05:10 WBC RBC Hgb Hct MCV MCH MCHC RDW Plt Count Seg Neutrophils % Lymphocytes % Monocytes % Eosinophils % Basophils % Absolute Neutrophils Absolute Lymphocytes Absolute Monocytes Absolute Eosinophils Absolute Basophils Sodium 136.4 L Potassium 4.4 Chloride 98 Carbon Dioxide 27 Anion Gap 11 BUN 21 H Creatinine 1.12 Est GFR ( Amer) > 60 Est GFR (Non-Af Amer) > 60 Glucose 148 H Lactic Acid Calcium 9.7 Urine Color Urine Appearance Urine pH Ur Specific [place] Urine Protein Urine Glucose (UA) Urine Ketones Urine Blood Urine Nitrite Ur Leukocyte Esterase Urine WBC (Auto) Urine RBC (Auto) Assessment & Plan - Diagnosis (1) Acute hypoxemic respiratory failure Is this a current diagnosis for this admission?: Yes Plan: Suspect Aspiration Pneumonia vs CAP: Will continue Zosyn. Will check CT of Chest. CBC in am (2) Pneumonia Qualifiers: Pneumonia type: aspiration pneumonia Laterality: bilateral Lung location : upper lobe of lung Is this a current diagnosis for this admission?: Yes Plan: Suspect Aspiration Pneumonia Presumed Gram Negative Organism: Will continue Zosyn. Will check CT of chest. Will check CBC. (3) Dehydration Is this a current diagnosis for this admission?: Yes Plan: Will continue IVF at 75cc/hour. (4) Hypercalcemia Is this a current diagnosis for this admission?: Yes Plan: in setting of Dehydration: Repeat Ca 9.4. Will continue IVFs. (5) Hyponatremia Is this a current diagnosis for this admission?: Yes Plan: in setting of Dehydration: Will continue IVFs. (6) CVA, old, dysphagia Is this a current diagnosis for this admission?: Yes Plan: supportive care. (7) Diabetes mellitus Qualifiers: Diabetes mellitus type: type 2 Diabetes mellitus complication status: with unspecified complications Diabetes mellitus petroleum terminal plant operator insulin use: without petroleum terminal plant operator use Qualified Code(s): E11.8 - Type 2 diabetes mellitus with unspecified complications Is this a current diagnosis for this admission?: Yes Plan: Will continue SSI. (8) Dysphasia S/P CVA (cerebrovascular accident) Is this a current diagnosis for this admission?: Yes Plan: Will have speech evaluate pt. Will order Modified Barium Swallow. (9) Gastroesophageal reflux disease Qualifiers: Esophagitis presence: esophagitis presence not specified Qualified Code(s) : K21.9 - Gastro-esophageal reflux disease without esophagitis Is this a current diagnosis for this admission?: Yes Plan: PPI (10) Hypertension Qualifiers: Hypertension type: essential hypertension Qualified Code(s): I10 - Essential (primary) hypertension Is this a current diagnosis for this admission?: Yes Plan: Will monitor. Pt with low blood pressure currently. (11) DVT prophylaxis Is this a current diagnosis for this admission?: Yes Plan: SCDs - Time Time Spent with patient: 15-24 minutes
[2017-03-14] MEDS: ACETAMINOPHEN 325 MG TABLET PO PRN ×2 (10:33→14:42)
[2017-03-14] MEDS: PIPERACILLIN SODIUM/TAZOBACTAM 3.375 GM in NORMAL SALINE 100 ML IV SCH ×3 (17:38→23:02)
[2017-03-14] MEDS: LIDOCAINE 5% (700 MG) TRANSDERMAL ADH..PATCH TP SCH (22:27)
[2017-03-14] MEDS ORDERED: LIDOCAINE 5% (700 MG) TRANSDERMAL ADH..PATCH ONE (22:44)
[2017-03-15] MEDS: PIPERACILLIN SODIUM/TAZOBACTAM 3.375 GM in NORMAL SALINE 100 ML IV SCH ×4 (05:27→23:02)
[2017-03-15] MEDS: BENZONATATE 100 MG CAPSULE PO SCH ×3 (05:27→21:21)
[2017-03-15 06:16] LABS: ALANINE AMINOTRANSFERASE 29 U/L (21-72); ALBUMIN 3.7 g/dL (3.5-5.0); ALKALINE PHOSPHATASE 109 U/L (38-126); ANION GAP 10 (5-19); ASPARTATE AMINO TRANSFERASE 85 U/L (17-59); BILIRUBIN,DIRECT 0.6 mg/dL (0.0-0.4); BILIRUBIN,TOTAL 1.4 mg/dL (0.2-1.3); BLOOD UREA NITROGEN 18 mg/dL (7-20); CALCIUM 9.6 mg/dL (8.4-10.2); CARBON DIOXIDE 30 mmol/L (22-30); CHLORIDE 101 mmol/L (98-107); GLUCOSE 120 mg/dL (75-110); SODIUM 141.1 mmol/L (137-145); TOTAL PROTEIN 7.4 g/dL (6.3-8.2)
[2017-03-15 06:42] LABS: ABSOLUTE LYMPHOCYTES (AUTO) 1.2 10^3/uL (0.5-4.7); ABSOLUTE NEUT (AUTO) 8.9 10^3/uL (1.7-8.2); BASOPHILS % (AUTO) 0.3 % (0-2); EOSINOPHILS % (AUTO) 0.3 % (0-6); HEMATOCRIT 43.3 % (37.9-51.0); HEMOGLOBIN 14.3 g/dL (13.5-17.0); LYMPHOCYTES % (AUTO) 10.6 % (13-45); MEAN CORPUSCULAR HEMOGLOBIN 29.8 pg (27.0-33.4); MEAN CORPUSCULAR VOLUME 90 fl (80-97); MONOCYTES % (AUTO) 9.3 % (3-13); PLATELET COUNT 268 10^3/uL (150-450); RED BLOOD COUNT 4.81 10^6/uL (4.35-5.55); RED CELL DISTRIBUTION WIDTH 13.2 % (11.5-14.0); SEGMENTED NEUTROPHILS % (AUTO) 79.5 % (42-78); TOTAL CELLS COUNTED % (AUTO) 100 %; WHITE BLOOD COUNT 11.2 10^3/uL (4.0-10.5)
[2017-03-15] MEDS: IPRATROPIUM/ALBUTEROL 0.5-2.5 MG/3 ML AMPUL NEB SCH ×4 (08:32→20:45)
[2017-03-15] MEDS ORDERED: INSULIN LISPRO 100 UNIT/ML 3 ML VIAL SUBCUT PRN (09:17)
[2017-03-15] MEDS: GUAIFENESIN 600 MG TABLET.SA PO SCH ×2 (10:05→21:21)
[2017-03-15] MEDS: ENOXAPARIN SODIUM INJ 30 MG/0.3 ML DISP.SYRIN SUBCUT SCH (10:05)
--- NOTE | 2017-03-15 10:08 | RADIOLOGY REPORT (SQ) ---
EXAM DESCRIPTION: CT CHEST WITHOUT COMPLETED DATE/TIME: 03/15/2017 9:51 am REASON FOR STUDY: Aspiration Pneumonia COMPARISON: Cookie swallow same date CT chest 03/11/2017, 09/04/2014 Chest film 03/13/2017, 02/10/2016 TECHNIQUE: CT scan performed of the chest without intravenous contrast. Images reviewed with lung, soft tissue and bone windows. Reconstructed coronal and sagittal MPR images reviewed. All images st ored on PACS. All CT scanners at this facility use dose modulation, iterative reconstruction, and/or weight based d osing when appropriate to reduce radiation dose to as low as reasonably achievable (ALARA). [facility]: Dose Right [facility]: CareDose [facility]: Dose Right [facility]: Teradose 4D [facility]: [employer] RADIATION DOSE: CT Rad equipment meets quality standard of care and radiation dose reduction techniq ues were employed. CTDIvol: 16.0 mGy. DLP: 569 mGy-cm. mGy. LIMITATIONS: No technical limitations. FINDINGS: There is residual barium in the piriform recesses of the larynx, and barium throughout the esophagus from either gastroesophageal reflux or ineffective esophageal peristalsis. LUNGS AND PLEURA: There are patchy areas of dense lung parenchymal consolidation with air bronchogram s scattered throughout the right upper lobe, right middle lobe and right lower lobe worrisome for mul tifocal pneumonia. Minimal lingular airspace disease is present atelectasis versus pneumonia. Old left apical calcified granuloma. No significant pleural effusions. No pneumothorax. HILAR AND MEDIASTINAL STRUCTURES: No identified masses or abnormal nodes. No obvious aneurysm. HEART AND VASCULAR STRUCTURES: No aneurysm. No pericardial effusion. Heavy calcification of the andrew rodney coronary arteries UPPER ABDOMEN: Post cholecystectomy THYROID AND OTHER SOFT TISSUES: No masses. No adenopathy. BONES: No significant finding. HARDWARE: None in the chest. OTHER: No other significant findings. IMPRESSION: Diffuse airspace disease right none worrisome for pneumonia. Aspiration should be consi dered. These findings have progressed slightly compared to CT chest 03/11/2017 TECHNICAL DOCUMENTATION: JOB ID: [id number] Quality ID # [id number]: Final reports with documentation of one or more dose reduction techniques (e.g., Au tomated exposure control, adjustment of the mA and/or kV according to patient size, use of iterative reconstruction technique) 2010 [employer]- All Rights Reserved
[2017-03-15] MEDS ORDERED: LACTOBACILLUS ACIDOPHILUS 250 MG TAB PO ONE (11:00)
--- NOTE | 2017-03-15 14:16 | ST Inp Modified Barium Swallow ---
Medical Diagnosis - Medical Diagnoses Medical Diagnosis Description & ICD-10 Code(s): dysphagia s/p CVA [place] [facility] [place]: [place]15[place] - History History Obtained From: Other - EMR -: Medical - per EMR: CVA, dysphagia, priorly diabetic, HTN, CMV infection of the eye Patient admitted 03/13/17 with pneumonia, left lower lobe. Patient reports that he previously had used a PEG tube, but no longer using. Medications: Medications Reviewed Allergies: Refer to medical record - Subjective Current Nutritional Means: PO Current PO Diet: Mechanical- ground, Regular - liquids Current Symptoms: Coughing, Pneumonia Pain: Patient reports, 0/5 - Objective Assessment: Upright, Left Lateral - Food Trials Food Trials Used: Thin liquids, Pureed, Regular The Patient: Was Able to Self Feed - Assessment Labial Function: Within Normal Limits Lingual Function: Within Normal Limits Mandibular Function: Within Normal Limits Laryngeal Function: weak voicing - Pharyngeal Stage Initiation of Pharyngeal Stage: Delayed Reflex Delay Time (seconds): 4 Decreased Laryngeal Elevation: No Reduced Pressure Generation: Yes Reduced Tongue Base Retraction: No Pre-Swallowing Pooling in Valleculae: Significant Pre-Swallowing Pooling in Pyriforms: Moderate - on liquid trials only Reduced Epiglottic Excursion: No Reduced Pharyngeal Peristalsis: No Multiple Swallows With: Cleared w/ Liquid Assist Post Swallow Residuals in Valleculae: Moderate - on solid trials Post Swallow Residuals in Pyriforms: Moderate - on liquid trials only Pahryngeal Stage Comments: Patient demonstrated delayed swallow reflex. On liquid trials, pyriform sinus residue was noted after the swallow. Was able to clear with second swallow. On solids, residue in valleculae noted, required verbal cues to complete dry swallow to clear residue. - Impression/Summary Laryngeal Penetration: Yes, after swallow - on valleculae residue of solid Tracheal Aspiration: no Effective Compensatory Strategies: hard swallow Ineffective Compensatory Strategies: throat clear & reswallow Patient Presents With: Pharyngeal stage dysph., Mild-Moderate Risk of Aspiration: Mild - Recommendations Solid Diet Recommendations: Mechanical Soft, Ground Meat Liquid Diet Recommendations: Thin Strict Aspitarion Precautions: Yes Dysphagia Therapy with DISCHARGE DOOR OPERATOR: Yes Recommended Techniques: Fully Upright During Meal, Dry Swallow After Bite, Alternate Bites/Sips - Time Total Time: 20 Total Timed Minutes: 20
[2017-03-15] MEDS ORDERED: POLYETHYLENE GLYCOL 3350 POWDER 17 GM/1 PACKET PO ONE (15:30)
--- NOTE | 2017-03-15 16:57 | PDOC PROGRESS REPORT ---
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 The patient fell and hit his head family last Tuesday and has been going downhill since then according to them. 2 days after his fall he reported left lower chest pain and shortness of breath he was brought into the emergency room diagnosed with pneumonia given a prescription for Levaquin and sent home. The family reports no fevers or chills however on the day of admission on March 13 his temperature was noted to be 103.9F. He was diagnosed with sepsis due to left lower lobe pneumonia and started on Zosyn. He is a DO NOT RESUSCITATE. Daughter is at the bedside. Plan of care was discussed with her. The patient has no complaints. He has not had a bowel movement in 4 days. Appetite is fair. Physical Exam Vital Signs: Temp Pulse Resp BP Pulse Ox 98.6 F 84 20 138/73 H 96 03/15/17 07:17 03/15/17 07:17 03/15/17 07:17 03/15/17 07:17 03/15/17 07:17 Intake & Output 03/14/17 03/15/17 03/16/17 06:59 06:59 06:59 Intake Total 1544 Output Total 30 1000 Balance -30 544 Weight 74.9 kg 77 kg General appearance: PRESENT: no acute distress, cooperative Head exam: PRESENT: atraumatic, normocephalic Eye exam: PRESENT: other - Corneal opacification of the left eye. He is blind in the left eye. Ear exam: PRESENT: normal external ear exam Mouth exam: PRESENT: neck supple Neck exam: ABSENT: tenderness, tracheal deviation Respiratory exam: PRESENT: unlabored, other - Hoarse breath sounds bilateral. ABSENT: accessory muscle use Cardiovascular exam: PRESENT: RRR, +S1, +S2 Pulses: PRESENT: normal dorsalis pedis pul GI/Abdominal exam: PRESENT: normal bowel sounds, soft. ABSENT: tenderness Rectal exam: PRESENT: deferred Gentrourinary exam: PRESENT: other - Delgado present Neurological exam: PRESENT: alert, awake, oriented to person, oriented to place Psychiatric exam: PRESENT: appropriate affect, normal mood Results Laboratory Results: 03/15/17 05:20 03/15/17 05:20 03/15/17 03/15/17 05:20 05:20 WBC 11.2 H RBC 4.81 Hgb 14.3 Hct 43.3 MCV 90 MCH 29.8 MCHC 33.0 RDW 13.2 Plt Count 268 Seg Neutrophils % 79.5 H Lymphocytes % 10.6 L Monocytes % 9.3 Eosinophils % 0.3 Basophils % 0.3 Absolute Neutrophils 8.9 H Absolute Lymphocytes 1.2 Absolute Monocytes 1.0 Absolute Eosinophils 0.0 Absolute Basophils 0.0 Sodium 141.1 Potassium 4.0 Chloride 101 Carbon Dioxide 30 Anion Gap 10 BUN 18 Creatinine 0.91 Est GFR ( Amer) > 60 Est GFR (Non-Af Amer) > 60 Glucose 120 H Calcium 9.6 Magnesium 2.0 Total Bilirubin 1.4 H AST 85 H ALT 29 Alkaline Phosphatase 109 Total Protein 7.4 Albumin 3.7 Assessment & Plan - Diagnosis (1) Acute hypoxemic respiratory failure Is this a current diagnosis for this admission?: Yes Plan: Secondary to extensive right-sided pneumonia felt to be due to aspiration. Continue antibiotics. (2) Hyponatremia Is this a current diagnosis for this admission?: Yes (3) Pneumonia Qualifiers: Pneumonia type: aspiration pneumonia Laterality: bilateral Lung location : upper lobe of lung Is this a current diagnosis for this admission?: Yes Plan: Day 3 of antibiotics. Aspiration precautions. Modified diet. (4) Sepsis Qualifiers: Sepsis type: sepsis due to unspecified organism Qualified Code(s): A41.9 - Sepsis, unspecified organism Is this a current diagnosis for this admission?: Yes (6) CVA, old, dysphagia Is this a current diagnosis for this admission?: Yes (7) Do not resuscitate Is this a current diagnosis for this admission?: Yes Plan: Daughter Madison is surrogate decision maker. (8) Hypertension Qualifiers: Hypertension type: essential hypertension Qualified Code(s): I10 - Essential (primary) hypertension Is this a current diagnosis for this admission?: Yes Plan: Stable. (9) Diabetes mellitus Qualifiers: Diabetes mellitus type: type 2 Diabetes mellitus complication status: with unspecified complications Diabetes mellitus longterm insulin use: without supervisor intermediates use Qualified Code(s): E11.8 - Type 2 diabetes mellitus with unspecified complications Is this a current diagnosis for this admission?: Yes Plan: Diet controlled.
[2017-03-15] MEDS ORDERED: (PENDING PHARMACY ID) (Atenolol [Tenormin] 25 MG) PO SCH (17:00)
[2017-03-15] MEDS ORDERED: ATENOLOL 50 MG TABLET PO ONE (17:30)
[2017-03-15] MEDS: DOCUSATE SODIUM 100 MG CAPSULE PO SCH (17:40)
[2017-03-15] MEDS: LACTOBACILLUS ACIDOPHILUS 250 MG TAB PO SCH (17:41)
--- NOTE | 2017-03-15 17:58 | RADIOLOGY REPORT (SQ) ---
EXAM DESCRIPTION: COOKIE SWALLOW COMPLETED DATE/TIME: 03/15/2017 9:18 am REASON FOR STUDY: Dysphagia COMPARISON: MODIFIED BARIUM SWALLOW 01/29/2016 TECHNIQUE: Videofluoroscopic swallowing examination was performed in conjunction with speech patholo gy. Videofluoroscopic imaging was obtained and reviewed and these are the findings: RADIATION DOSE: 3 minutes of fluoroscopy was used 3 images saved to PACS. LIMITATIONS: None FINDINGS: The patient was brought into the fluoro room and placed upright on a modified barium swall ow chair. The patient was then given multiple consistencies mixed with barium to swallow under live fluoroscopic video guidance. According to the Speech Pathologist there was laryngeal penetration of thin liquids and post swallow residual. No aspiration seen. IMPRESSION: LARYNGEAL PENETRATION DESCRIBED.PLEASE SEE SPEECH PATHOLOGIST REPORT FOR OTHER FINDIN GS AND RECOMMENDATIONS. COMMENT: Quality ID [id number]: Final reports for procedures using fluoroscopy that document radiation exp osure indices, or exposure time and number of fluorographic images (if radiation exposure indices are not available) TECHNICAL DOCUMENTATION: JOB ID: [id number] [employer]- All Rights Reserved
[2017-03-15] MEDS ORDERED: TIMOLOL MALEATE 0.5% OPH SOLN 5 ML OS ONE (18:00)
[2017-03-15] MEDS: DIAZEPAM 5 MG TABLET PO PRN (21:25)
[2017-03-15] MEDS: LIDOCAINE 5% (700 MG) TRANSDERMAL ADH..PATCH TP SCH (21:25)
[2017-03-15] MEDS: ALPRAZOLAM 0.5 MG TABLET PO PRN (22:54)
[2017-03-16] MEDS ORDERED: HALOPERIDOL LACTATE INJ 5 MG/1 ML VIAL IV PRN (00:32)
[2017-03-16] MEDS: BENZONATATE 100 MG CAPSULE PO SCH ×2 (05:40→15:30)
[2017-03-16] MEDS: PIPERACILLIN SODIUM/TAZOBACTAM 3.375 GM in NORMAL SALINE 100 ML IV SCH ×3 (05:40→18:54)
[2017-03-16] MEDS: IPRATROPIUM/ALBUTEROL 0.5-2.5 MG/3 ML AMPUL NEB SCH (08:33)
[2017-03-16] MEDS: ENOXAPARIN SODIUM INJ 30 MG/0.3 ML DISP.SYRIN SUBCUT SCH (09:25)
[2017-03-16] MEDS: DOCUSATE SODIUM 100 MG CAPSULE PO SCH ×2 (09:26→18:55)
[2017-03-16] MEDS: POLYETHYLENE GLYCOL 3350 POWDER 17 GM/1 PACKET PO SCH (09:26)
[2017-03-16] MEDS: LACTOBACILLUS ACIDOPHILUS 250 MG TAB PO SCH ×2 (09:26→18:55)
[2017-03-16] MEDS: GUAIFENESIN 600 MG TABLET.SA PO SCH ×2 (09:26→21:36)
[2017-03-16] MEDS: TIMOLOL MALEATE 0.5% OPH SOLN 5 ML OS SCH (09:27)
[2017-03-16] MEDS: ATENOLOL 50 MG TABLET PO SCH (09:28)
[2017-03-16] MEDS: ALPRAZOLAM 0.5 MG TABLET PO PRN (09:40)
[2017-03-16] MEDS: DIAZEPAM 5 MG TABLET PO PRN (09:41)
[2017-03-16] MEDS ORDERED: ASPIRIN 81 MG TABLET, ENT COATED PO SCH (10:00)
[2017-03-16] MEDS ORDERED: TEMAZEPAM 15 MG CAPSULE PO SCH (16:15)
[2017-03-16] MEDS ORDERED: ALPRAZOLAM 0.5 MG TABLET PO PRN ×2 (16:22→16:27)
--- NOTE | 2017-03-16 17:05 | PDOC PROGRESS REPORT ---
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 Presented to the hospital on March 13 with shortness of breath and was diagnosed with aspiration pneumonia. He is on aspiration precautions, modified diet and antibiotics. He was agitated and anxious overnight and improved with Valium and Xanax. His daughter is at the bedside and I had a conversation regarding goals of care. The patient lives at home with his and they have aids available, however his daughter is concerned that he will require more supervision and assistance that is possible at home and is requesting a social work evaluation for for possible SNF for subacute rehabilitation. Has been constipated for the past 3 days. Reason For Visit: PNEUMONIA, ACUTE HYPOXEMIC RESPIRATORY FAILURE Physical Exam Vital Signs: Temp Pulse Resp BP Pulse Ox 98.3 F 69 16 141/70 H 95 03/16/17 07:41 03/16/17 14:00 03/16/17 08:33 03/16/17 07:41 03/16/17 08:33 Intake & Output 03/15/17 03/16/17 03/17/17 06:59 06:59 06:59 Intake Total 1544 1159 Output Total 1000 2100 Balance 544 -941 Weight 77 kg 75.3 kg Additional comments: Elderly gentleman lying comfortably in bed not in acute distress HEENT: He has left corneal opacification and is blind in the left eye. No conjunctival discharge. No icterus Moist pink oropharyngeal mucosa Neck is supple trachea is midline Lungs: Coarse breath sounds on the right, normal respiratory effort, no wheezing or crackles heard Cardiac: S1-S2 regular no peripheral edema no cyanosis no calf tenderness Abdomen: Soft, no focal tenderness, normal bowel sounds, rectal exam deferred Skin: Warm and dry Results Laboratory Results: 03/15/17 05:20 03/15/17 05:20 03/13/17 23:06 Sputum Gram Stain - Final 03/13/17 23:06 Sputum Sputum Culture - Final C.albicans/C.dubliniensis Reduced Normal Paulette 03/13/17 23:06 Catheterized Urine Urine Culture - Final NO GROWTH 2 DAYS Impressions: Chest CT 03/15/17 00:00 IMPRESSION: Diffuse airspace disease right none worrisome for pneumonia. Aspiration should be considered. These findings have progressed slightly compared to CT chest 03/11/2017 Modified Barium Swallow 03/15/17 00:00 IMPRESSION: LARYNGEAL PENETRATION DESCRIBED.PLEASE SEE SPEECH PATHOLOGIST REPORT FOR OTHER FINDINGS AND RECOMMENDATIONS. Assessment & Plan - Diagnosis (1) Acute hypoxemic respiratory failure Is this a current diagnosis for this admission?: Yes Plan: Secondary to extensive right-sided pneumonia felt to be due to aspiration. Continue antibiotics and aspiration precautions and supplemental oxygen to keep sats above 90%. (2) Hyponatremia Is this a current diagnosis for this admission?: Yes Plan: Mild, resolved. (3) Pneumonia Qualifiers: Pneumonia type: aspiration pneumonia Laterality: bilateral Lung location : upper lobe of lung Is this a current diagnosis for this admission?: Yes Plan: Day 4 of antibiotics. Aspiration precautions. Modified diet. (4) Sepsis Qualifiers: Sepsis type: sepsis due to unspecified organism Qualified Code(s): A41.9 - Sepsis, unspecified organism Is this a current diagnosis for this admission?: Yes Plan: Secondary to pneumonia. Improved. (5) Ambulatory dysfunction Is this a current diagnosis for this admission?: Yes Plan: Fall precautions and physical therapy. (6) CVA, old, dysphagia Is this a current diagnosis for this admission?: Yes Plan: Stable. Continue outpatient medications per (7) Do not resuscitate Is this a current diagnosis for this admission?: Yes (8) Hypertension Qualifiers: Hypertension type: essential hypertension Qualified Code(s): I10 - Essential (primary) hypertension Is this a current diagnosis for this admission?: Yes Plan: On atenolol. (9) Diabetes mellitus Qualifiers: Diabetes mellitus type: type 2 Diabetes mellitus complication status: with unspecified complications Diabetes mellitus residential insulin use: without residential use Qualified Code(s): E11.8 - Type 2 diabetes mellitus with unspecified complications Is this a current diagnosis for this admission?: Yes Plan: Diet controlled. - Time Time Spent with patient: 35 or more minutes Anticipated discharge: SNF
[2017-03-16] MEDS: LEVALBUTEROL HCL NEB 1.25 MG/3 ML AMPUL NEB PRN (17:08)
[2017-03-16] MEDS ORDERED: BISACODYL 10 MG SUPP.RECT PR ONE (18:00)
[2017-03-16] MEDS: HYOSCYAMINE SULFATE 0.125 MG TABLET PO SCH (20:40)
[2017-03-16] MEDS: SENNOSIDES/DOCUSATE 8.6-50 MG 1 EACH TABLET PO SCH (21:35)
[2017-03-16] MEDS: DIAZEPAM 5 MG TABLET PO SCH (21:35)
[2017-03-16] MEDS: LIDOCAINE 5% (700 MG) TRANSDERMAL ADH..PATCH TP SCH (21:39)
[2017-03-17] MEDS: PIPERACILLIN SODIUM/TAZOBACTAM 3.375 GM in NORMAL SALINE 100 ML IV SCH ×4 (00:50→18:15)
[2017-03-17] MEDS: ACETAMINOPHEN 325 MG TABLET PO PRN ×2 (08:20→12:57)
[2017-03-17] MEDS: HYOSCYAMINE SULFATE 0.125 MG TABLET PO SCH ×3 (08:20→18:18)
[2017-03-17] MEDS: ENOXAPARIN SODIUM INJ 30 MG/0.3 ML DISP.SYRIN SUBCUT SCH (09:10)
[2017-03-17] MEDS: DOCUSATE SODIUM 100 MG CAPSULE PO SCH ×2 (09:11→18:18)
[2017-03-17] MEDS: GUAIFENESIN 600 MG TABLET.SA PO SCH ×2 (09:11→22:09)
[2017-03-17] MEDS: LACTOBACILLUS ACIDOPHILUS 250 MG TAB PO SCH ×2 (09:11→18:18)
[2017-03-17] MEDS: ASPIRIN 325 MG TABLET PO SCH (09:11)
[2017-03-17] MEDS: POLYETHYLENE GLYCOL 3350 POWDER 17 GM/1 PACKET PO SCH (09:11)
[2017-03-17] MEDS: TIMOLOL MALEATE 0.5% OPH SOLN 5 ML OS SCH (09:13)
[2017-03-17] MEDS: ATENOLOL 50 MG TABLET PO SCH (09:14)
[2017-03-17] MEDS: LEVALBUTEROL HCL NEB 1.25 MG/3 ML AMPUL NEB PRN ×2 (12:02→16:23)
[2017-03-17] MEDS ORDERED: BISACODYL 10 MG SUPP.RECT PR ONE (13:00)
--- NOTE | 2017-03-17 18:07 | PDOC PROGRESS REPORT ---
Subjective Progress Note for:: 03/17/17 Subjective:: He is up and awake today feels much better. Constipation has resolved. Daughter is at the bedside. Plan of care was discussed. Reason For Visit: PNEUMONIA, ACUTE HYPOXEMIC RESPIRATORY FAILURE Physical Exam Vital Signs: Temp Pulse Resp BP Pulse Ox 97.8 F 87 18 130/71 H 98 03/17/17 16:15 03/17/17 16:23 03/17/17 16:23 03/17/17 16:15 03/17/17 16:23 Intake & Output 03/16/17 03/17/17 03/18/17 06:59 06:59 06:59 Intake Total 1159 1091 Output Total 2099 2049 Balance -941 -959 Weight 75.3 kg 77.4 kg Additional comments: Elderly gentleman sittingcomfortably in his chair HEENT: He has left corneal opacification and is blind in the left eye. No conjunctival discharge. No icterus Moist pink oropharyngeal mucosa Neck is supple trachea is midline Lungs: Coarse breath sounds on the right, normal respiratory effort, no wheezing or crackles heard Cardiac: S1-S2 regular no peripheral edema no cyanosis no calf tenderness Abdomen: Soft, no focal tenderness, normal bowel sounds, rectal exam deferred Skin: Warm and dry Results Laboratory Results: 03/15/17 05:20 03/15/17 05:20 Impressions: Chest CT 03/15/17 00:00 IMPRESSION: Diffuse airspace disease right none worrisome for pneumonia. Aspiration should be considered. These findings have progressed slightly compared to CT chest 03/11/2017 Modified Barium Swallow 03/15/17 00:00 IMPRESSION: LARYNGEAL PENETRATION DESCRIBED.PLEASE SEE SPEECH PATHOLOGIST REPORT FOR OTHER FINDINGS AND RECOMMENDATIONS. Assessment & Plan - Diagnosis (1) Acute hypoxemic respiratory failure Is this a current diagnosis for this admission?: Yes (2) Hyponatremia Is this a current diagnosis for this admission?: Yes (3) Pneumonia Qualifiers: Pneumonia type: aspiration pneumonia Laterality: bilateral Lung location : upper lobe of lung Is this a current diagnosis for this admission?: Yes (4) Sepsis Qualifiers: Sepsis type: sepsis due to unspecified organism Qualified Code(s): A41.9 - Sepsis, unspecified organism Is this a current diagnosis for this admission?: Yes (5) Ambulatory dysfunction Is this a current diagnosis for this admission?: Yes (6) CVA, old, dysphagia Is this a current diagnosis for this admission?: Yes (7) Do not resuscitate Is this a current diagnosis for this admission?: Yes (8) Hypertension Qualifiers: Hypertension type: essential hypertension Qualified Code(s): I10 - Essential (primary) hypertension Is this a current diagnosis for this admission?: Yes (9) Diabetes mellitus Qualifiers: Diabetes mellitus type: type 2 Diabetes mellitus complication status: with unspecified complications Diabetes mellitus penitentiary insulin use: without moth exterminator use Qualified Code(s): E11.8 - Type 2 diabetes mellitus with unspecified complications Is this a current diagnosis for this admission?: Yes - Time Time Spent with patient: 15-24 minutes - Plan Summary Plan Summary: New aspiration precautions and antibiotics. Continue supplemental oxygen. Continue his outpatient benzodiazepines for Anxiety. Sepsis has resolved. Hyponatremia has resolved. He has a prior stroke with residual dysphagia. Continue physical therapy. Social work consult for possible SNF placement. Continue atenolol for hypertension.
[2017-03-17] MEDS: DIAZEPAM 5 MG TABLET PO SCH (22:09)
[2017-03-17] MEDS: SENNOSIDES/DOCUSATE 8.6-50 MG 1 EACH TABLET PO SCH (22:10)
[2017-03-17] MEDS: LIDOCAINE 5% (700 MG) TRANSDERMAL ADH..PATCH TP SCH (22:13)
[2017-03-18] MEDS: PIPERACILLIN SODIUM/TAZOBACTAM 3.375 GM in NORMAL SALINE 100 ML IV SCH ×4 (00:30→17:21)
[2017-03-18 06:50] LABS: ALANINE AMINOTRANSFERASE 76 U/L (21-72); ALKALINE PHOSPHATASE 175 U/L (38-126); ANION GAP 12 (5-19); ASPARTATE AMINO TRANSFERASE 79 U/L (17-59); BILIRUBIN,DIRECT 0.4 mg/dL (0.0-0.4); BILIRUBIN,TOTAL 0.8 mg/dL (0.2-1.3); BLOOD UREA NITROGEN 13 mg/dL (7-20); CALCIUM 9.1 mg/dL (8.4-10.2); CARBON DIOXIDE 27 mmol/L (22-30); CHLORIDE 100 mmol/L (98-107); GLUCOSE 105 mg/dL (75-110); PHOSPHORUS 3.1 mg/dL (2.5-4.5); POTASSIUM 4.1 mmol/L (3.6-5.0)
[2017-03-18] MEDS: HYOSCYAMINE SULFATE 0.125 MG TABLET PO SCH ×3 (08:35→17:20)
[2017-03-18] MEDS: ENOXAPARIN SODIUM INJ 30 MG/0.3 ML DISP.SYRIN SUBCUT SCH (10:08)
[2017-03-18] MEDS: LACTOBACILLUS ACIDOPHILUS 250 MG TAB PO SCH ×2 (10:08→17:21)
[2017-03-18] MEDS: GUAIFENESIN 600 MG TABLET.SA PO SCH ×2 (10:09→22:08)
[2017-03-18] MEDS: ATENOLOL 50 MG TABLET PO SCH (10:09)
[2017-03-18] MEDS: DOCUSATE SODIUM 100 MG CAPSULE PO SCH ×2 (10:10→17:22)
[2017-03-18] MEDS: TIMOLOL MALEATE 0.5% OPH SOLN 5 ML OS SCH (10:10)
[2017-03-18] MEDS: POLYETHYLENE GLYCOL 3350 POWDER 17 GM/1 PACKET PO SCH (10:10)
[2017-03-18] MEDS: ASPIRIN 325 MG TABLET PO SCH (10:16)
[2017-03-18] MEDS: LEVALBUTEROL HCL NEB 1.25 MG/3 ML AMPUL NEB PRN ×2 (11:14→20:27)
[2017-03-18] MEDS: PHARMACY COMMUNICATION ORDER MC SCH (11:58)
[2017-03-18 14:32] LABS: APPEARANCE,URINE CLEAR; BILIRUBIN,URINE NEGATIVE (NEGATIVE); COLOR,URINE YELLOW; GLUCOSE, URINE NEGATIVE (NEGATIVE); KETONES,URINE NEGATIVE (NEGATIVE); LEUKOCYTE ESTERASE,URINE TRACE (NEGATIVE); NITRITE,URINE NEGATIVE (NEGATIVE); PROTEIN,URINE NEGATIVE (NEGATIVE); URINE SPECIFIC GRAVITY 1.003; UROBILINOGEN,URINE NEGATIVE mg/dL (<2.0)
[2017-03-18] MEDS ORDERED: LEVALBUTEROL HCL NEB 0.63 MG/3 ML AMPUL NEB ONE (15:00)
--- NOTE | 2017-03-18 16:00 | PDOC PROGRESS REPORT ---
Subjective Progress Note for:: 03/18/17 Subjective:: Feels better today. Reason For Visit: PNEUMONIA, ACUTE HYPOXEMIC RESPIRATORY FAILURE Physical Exam Vital Signs: Temp Pulse Resp BP Pulse Ox 98.5 F 64 18 138/76 H 98 03/18/17 11:48 03/18/17 14:00 03/18/17 11:48 03/18/17 11:48 03/18/17 11:48 Intake & Output 03/17/17 03/18/17 03/19/17 06:59 06:59 06:59 Intake Total 1091 911 Output Total 2049 5845 Balance -773 -966 Weight 77.4 kg 77.7 kg Additional comments: Elderly gentleman sitting in his bed HEENT: He has left corneal opacification and is blind in the left eye. No conjunctival discharge. No icterus Moist pink oropharyngeal mucosa Neck is supple trachea is midline Lungs: No accessory muscle use, decreased breath sounds right base no wheezing heard Cardiac: S1-S2 regular no peripheral edema no cyanosis no calf tenderness Abdomen: Soft, no focal tenderness, normal bowel sounds, rectal exam deferred Skin: Warm and dry Results Laboratory Results: 03/15/17 05:20 03/18/17 05:47 03/18/17 03/18/17 05:47 14:00 Sodium 139.0 Potassium 4.1 Chloride 100 Carbon Dioxide 27 Anion Gap 12 BUN 13 Creatinine 0.80 Est GFR ( Amer) > 60 Est GFR (Non-Af Amer) > 60 Glucose 105 Calcium 9.1 Phosphorus 3.1 Magnesium 2.0 Total Bilirubin 0.8 AST 79 H ALT 76 H Alkaline Phosphatase 175 H Total Protein 6.0 L Albumin 3.0 L Urine Color YELLOW Urine Appearance CLEAR Urine pH 7.0 Ur Specific Henderson 1.003 Urine Protein NEGATIVE Urine Glucose (UA) NEGATIVE Urine Ketones NEGATIVE Urine Blood LARGE H Urine Nitrite NEGATIVE Ur Leukocyte Esterase TRACE H Urine WBC (Auto) 19 Urine RBC (Auto) 34 Impressions: Chest CT 03/15/17 00:00 IMPRESSION: Diffuse airspace disease right none worrisome for pneumonia. Aspiration should be considered. These findings have progressed slightly compared to CT chest 03/11/2017 Modified Barium Swallow 03/15/17 00:00 IMPRESSION: LARYNGEAL PENETRATION DESCRIBED.PLEASE SEE SPEECH PATHOLOGIST REPORT FOR OTHER FINDINGS AND RECOMMENDATIONS. Assessment & Plan - Diagnosis (1) Acute hypoxemic respiratory failure Is this a current diagnosis for this admission?: Yes (2) Hyponatremia Is this a current diagnosis for this admission?: Yes (3) Pneumonia Qualifiers: Pneumonia type: aspiration pneumonia Laterality: bilateral Lung location : upper lobe of lung Is this a current diagnosis for this admission?: Yes (4) Sepsis Qualifiers: Sepsis type: sepsis due to unspecified organism Qualified Code(s): A41.9 - Sepsis, unspecified organism Is this a current diagnosis for this admission?: Yes (5) Ambulatory dysfunction Is this a current diagnosis for this admission?: Yes (6) CVA, old, dysphagia Is this a current diagnosis for this admission?: Yes (7) Do not resuscitate Is this a current diagnosis for this admission?: Yes (8) Hypertension Qualifiers: Hypertension type: essential hypertension Qualified Code(s): I10 - Essential (primary) hypertension Is this a current diagnosis for this admission?: Yes (9) Diabetes mellitus Qualifiers: Diabetes mellitus type: type 2 Diabetes mellitus complication status: with unspecified complications Diabetes mellitus prison insulin use: without intermodal owner operator truck driver use Qualified Code(s): E11.8 - Type 2 diabetes mellitus with unspecified complications Is this a current diagnosis for this admission?: Yes - Time Time Spent with patient: 25-34 minutes - Plan Summary Plan Summary: Continue antibiotics neb treatments Continue blood pressure medications Physical therapy Modified diet Possible sniffs for subacute rehabilitation. Referral sent.
[2017-03-18] MEDS: ACETAMINOPHEN 325 MG TABLET PO PRN (19:57)
[2017-03-18] MEDS: LEVALBUTEROL HCL NEB 0.63 MG/3 ML AMPUL NEB SCH (20:25)
[2017-03-18] MEDS: LIDOCAINE 5% (700 MG) TRANSDERMAL ADH..PATCH TP SCH (22:08)
[2017-03-18] MEDS: SENNOSIDES/DOCUSATE 8.6-50 MG 1 EACH TABLET PO SCH (22:09)
[2017-03-18] MEDS: DIAZEPAM 5 MG TABLET PO SCH (22:09)
[2017-03-19] MEDS: PIPERACILLIN SODIUM/TAZOBACTAM 3.375 GM in NORMAL SALINE 100 ML IV SCH ×5 (00:18→23:43)
[2017-03-19] MEDS: LEVALBUTEROL HCL NEB 1.25 MG/3 ML AMPUL NEB PRN (07:46)
[2017-03-19] MEDS: LEVALBUTEROL HCL NEB 0.63 MG/3 ML AMPUL NEB SCH ×3 (08:05→20:07)
[2017-03-19] MEDS: ENOXAPARIN SODIUM INJ 30 MG/0.3 ML DISP.SYRIN SUBCUT SCH (09:41)
[2017-03-19] MEDS: LACTOBACILLUS ACIDOPHILUS 250 MG TAB PO SCH ×2 (09:43→18:56)
[2017-03-19] MEDS: POLYETHYLENE GLYCOL 3350 POWDER 17 GM/1 PACKET PO SCH (09:43)
[2017-03-19] MEDS: HYOSCYAMINE SULFATE 0.125 MG TABLET PO SCH ×3 (09:44→18:56)
[2017-03-19] MEDS: ATENOLOL 50 MG TABLET PO SCH (09:44)
[2017-03-19] MEDS: DOCUSATE SODIUM 100 MG CAPSULE PO SCH ×2 (09:44→18:56)
[2017-03-19] MEDS: GUAIFENESIN 600 MG TABLET.SA PO SCH ×2 (09:44→21:11)
[2017-03-19] MEDS: ASPIRIN 325 MG TABLET PO SCH (09:44)
[2017-03-19] MEDS: TIMOLOL MALEATE 0.5% OPH SOLN 5 ML OS SCH (09:45)
[2017-03-19] MEDS: PHARMACY COMMUNICATION ORDER MC SCH (09:46)
[2017-03-19] MEDS: ACETAMINOPHEN 325 MG TABLET PO PRN (15:06)
--- NOTE | 2017-03-19 18:27 | PDOC PROGRESS REPORT ---
Subjective Progress Note for:: 03/19/17 Subjective:: No complaints. Daughter is at the bedside. Her questions were answered. She requested he be given something to help him sleep at night. Xanax at bedtime has been ordered. I have also ordered some risperidone 0.5 mg to be given in the evenings. Reason For Visit: PNEUMONIA, ACUTE HYPOXEMIC RESPIRATORY FAILURE Physical Exam Vital Signs: Temp Pulse Resp BP Pulse Ox 98.3 F 57 L 16 133/78 H 97 03/19/17 15:54 03/19/17 15:54 03/19/17 15:54 03/19/17 15:54 03/19/17 15:54 Intake & Output 03/18/17 03/19/17 03/20/17 06:59 06:59 06:59 Intake Total 911 888 757 Output Total 2505 1225 850 Balance -964 -337 -93 Weight 77.7 kg 76.4 kg Additional comments: Elderly gentleman sitting in his bed HEENT: He has left corneal opacification and is blind in the left eye. No conjunctival discharge. No icterus Moist pink oropharyngeal mucosa Neck is supple trachea is midline Lungs: No accessory muscle use, decreased breath sounds right base no wheezing heard Cardiac: S1-S2 regular no peripheral edema no cyanosis no calf tenderness Abdomen: Soft, no focal tenderness, normal bowel sounds, rectal exam deferred Skin: Warm and dry Results Laboratory Results: 03/15/17 05:20 03/18/17 05:47 Impressions: Chest CT 03/15/17 00:00 IMPRESSION: Diffuse airspace disease right none worrisome for pneumonia. Aspiration should be considered. These findings have progressed slightly compared to CT chest 03/11/2017 Modified Barium Swallow 03/15/17 00:00 IMPRESSION: LARYNGEAL PENETRATION DESCRIBED.PLEASE SEE SPEECH PATHOLOGIST REPORT FOR OTHER FINDINGS AND RECOMMENDATIONS. Assessment & Plan - Diagnosis (1) Acute hypoxemic respiratory failure Is this a current diagnosis for this admission?: Yes (2) Hyponatremia Is this a current diagnosis for this admission?: Yes (3) Pneumonia Qualifiers: Pneumonia type: aspiration pneumonia Laterality: bilateral Lung location : upper lobe of lung Is this a current diagnosis for this admission?: Yes (4) Sepsis Qualifiers: Sepsis type: sepsis due to unspecified organism Qualified Code(s): A41.9 - Sepsis, unspecified organism Is this a current diagnosis for this admission?: Yes (5) Ambulatory dysfunction Is this a current diagnosis for this admission?: Yes (6) CVA, old, dysphagia Is this a current diagnosis for this admission?: Yes (7) Do not resuscitate Is this a current diagnosis for this admission?: Yes (8) Hypertension Qualifiers: Hypertension type: essential hypertension Qualified Code(s): I10 - Essential (primary) hypertension Is this a current diagnosis for this admission?: Yes (9) Diabetes mellitus Qualifiers: Diabetes mellitus type: type 2 Diabetes mellitus complication status: with unspecified complications Diabetes mellitus custodial insulin use: without custodial use Qualified Code(s): E11.8 - Type 2 diabetes mellitus with unspecified complications Is this a current diagnosis for this admission?: Yes - Time Time Spent with patient: 25-34 minutes
[2017-03-19] MEDS ORDERED: RISPERIDONE 0.5 MG TAB.RAPDIS PO ONE (19:30)
[2017-03-19] MEDS ORDERED: RISPERIDONE 0.5 MG TAB.RAPDIS ONE (20:51)
[2017-03-19] MEDS: SENNOSIDES/DOCUSATE 8.6-50 MG 1 EACH TABLET PO SCH (21:10)
[2017-03-19] MEDS: DIAZEPAM 5 MG TABLET PO SCH (21:10)
[2017-03-19] MEDS: ALPRAZOLAM 0.5 MG TABLET PO SCH (21:10)
[2017-03-19] MEDS: LIDOCAINE 5% (700 MG) TRANSDERMAL ADH..PATCH TP SCH (21:11)
[2017-03-20] MEDS: PIPERACILLIN SODIUM/TAZOBACTAM 3.375 GM in NORMAL SALINE 100 ML IV SCH ×3 (05:46→18:15)
[2017-03-20 06:23] LABS: ALANINE AMINOTRANSFERASE 50 U/L (21-72); ALBUMIN 3.6 g/dL (3.5-5.0); ALKALINE PHOSPHATASE 148 U/L (38-126); ANION GAP 8 (5-19); ASPARTATE AMINO TRANSFERASE 61 U/L (17-59); BILIRUBIN,DIRECT 0.4 mg/dL (0.0-0.4); BILIRUBIN,TOTAL 0.5 mg/dL (0.2-1.3); BLOOD UREA NITROGEN 11 mg/dL (7-20); CALCIUM 9.6 mg/dL (8.4-10.2); CARBON DIOXIDE 34 mmol/L (22-30); CHLORIDE 101 mmol/L (98-107); GLUCOSE 115 mg/dL (75-110); MAGNESIUM 2.2 mg/dL (1.6-2.3); PHOSPHORUS 3.5 mg/dL (2.5-4.5); POTASSIUM 3.9 mmol/L (3.6-5.0); SODIUM 142.9 mmol/L (137-145); TOTAL PROTEIN 7.5 g/dL (6.3-8.2)
[2017-03-20 06:36] LABS: ABSOLUTE BASOPHILS # (AUTO) 0.1 10^3/uL (0.0-0.2); ABSOLUTE EOSINOPHILS # (AUTO) 0.4 10^3/uL (0.0-0.6); ABSOLUTE LYMPHOCYTES (AUTO) 1.4 10^3/uL (0.5-4.7); ABSOLUTE MONOCYTES (AUTO) 0.8 10^3/uL (0.1-1.4); ABSOLUTE NEUT (AUTO) 6.3 10^3/uL (1.7-8.2); BASOPHILS % (AUTO) 1.1 % (0-2); EOSINOPHILS % (AUTO) 4.5 % (0-6); HEMATOCRIT 48.9 % (37.9-51.0); HEMOGLOBIN 16.3 g/dL (13.5-17.0); LYMPHOCYTES % (AUTO) 15.3 % (13-45); MEAN CORPUSCULAR HEMOGLOBIN 29.9 pg (27.0-33.4); MEAN CORPUSCULAR HGB CONC 33.4 g/dL (32.0-36.0); MEAN CORPUSCULAR VOLUME 90 fl (80-97); MONOCYTES % (AUTO) 9.4 % (3-13); PLATELET COUNT 286 10^3/uL (150-450); RED BLOOD COUNT 5.46 10^6/uL (4.35-5.55); RED CELL DISTRIBUTION WIDTH 13.4 % (11.5-14.0); SEGMENTED NEUTROPHILS % (AUTO) 69.7 % (42-78); TOTAL CELLS COUNTED % (AUTO) 100 %
[2017-03-20] MEDS: LEVALBUTEROL HCL NEB 0.63 MG/3 ML AMPUL NEB SCH ×3 (07:34→19:50)
[2017-03-20] MEDS: POLYETHYLENE GLYCOL 3350 POWDER 17 GM/1 PACKET PO SCH (09:52)
[2017-03-20] MEDS: TIMOLOL MALEATE 0.5% OPH SOLN 5 ML OS SCH (09:54)
[2017-03-20] MEDS: ATENOLOL 50 MG TABLET PO SCH (09:54)
[2017-03-20] MEDS: ENOXAPARIN SODIUM INJ 30 MG/0.3 ML DISP.SYRIN SUBCUT SCH (09:54)
[2017-03-20] MEDS: LACTOBACILLUS ACIDOPHILUS 250 MG TAB PO SCH ×2 (09:55→18:15)
[2017-03-20] MEDS: ASPIRIN 325 MG TABLET PO SCH (09:55)
[2017-03-20] MEDS: PHARMACY COMMUNICATION ORDER MC SCH (09:56)
[2017-03-20] MEDS: DOCUSATE SODIUM 100 MG CAPSULE PO SCH ×2 (09:56→18:15)
[2017-03-20] MEDS: HYOSCYAMINE SULFATE 0.125 MG TABLET PO SCH ×3 (09:56→18:15)
[2017-03-20] MEDS: GUAIFENESIN 600 MG TABLET.SA PO SCH ×2 (09:56→21:15)
--- NOTE | 2017-03-20 11:27 | PDOC PROGRESS REPORT ---
Subjective Progress Note for:: 03/20/17 Subjective:: 81-year-old gentleman who has been on home hospice three times in the past due to aspiration pneumonia, but outlived it. He presented again with aspiration pneumonia. He has been improving with a modified diet aspiration precautions and antibiotics. His WBC count is normal. He would benefit from subacute rehabilitation at a half-way facility. The patient was having some agitation over the past few nights but has benefited from bedtime Xanax and also risperidone in the afternoon. Reason For Visit: PNEUMONIA, ACUTE HYPOXEMIC RESPIRATORY FAILURE Physical Exam Vital Signs: Temp Pulse Resp BP Pulse Ox 97.5 F 73 14 121/66 94 03/20/17 07:17 03/20/17 07:34 03/20/17 07:34 03/20/17 07:17 03/20/17 07:34 Intake & Output 03/19/17 03/20/17 03/21/17 06:59 06:59 06:59 Intake Total 888 757 Output Total 1225 1450 Balance -337 -693 Weight 76.4 kg 74.4 kg Additional comments: Elderly gentleman lying comfortably in bed HEENT: Left corneal opacification in the left eye. No conjunctival discharge. No icterus Moist pink oropharyngeal mucosa with no lesions Neck is supple trachea is midline Lungs: Auscultation bilaterally, normal respiratory effort Cardiac: S1-S2 regular no peripheral edema no cyanosis no calf tenderness Abdomen: Soft, no focal tenderness, normal bowel sounds Skin: Warm and dry Results Laboratory Results: 03/20/17 05:48 03/20/17 05:48 03/20/17 03/20/17 05:48 05:48 WBC 9.0 RBC 5.46 Hgb 16.3 Hct 48.9 MCV 90 MCH 29.9 MCHC 33.4 RDW 13.4 Plt Count 286 Seg Neutrophils % 69.7 Lymphocytes % 15.3 Monocytes % 9.4 Eosinophils % 4.5 Basophils % 1.1 Absolute Neutrophils 6.3 Absolute Lymphocytes 1.4 Absolute Monocytes 0.8 Absolute Eosinophils 0.4 Absolute Basophils 0.1 Sodium 142.9 Potassium 3.9 Chloride 101 Carbon Dioxide 34 H Anion Gap 8 BUN 11 Creatinine 0.85 Est GFR ( Amer) > 60 Est GFR (Non-Af Amer) > 60 Glucose 115 H Calcium 9.6 Phosphorus 3.5 Magnesium 2.2 Total Bilirubin 0.5 AST 61 H ALT 50 Alkaline Phosphatase 148 H Total Protein 7.5 Albumin 3.6 03/18/17 14:00 Catheterized Urine Urine Culture - Final NO GROWTH 2 DAYS Impressions: Chest CT 03/15/17 00:00 IMPRESSION: Diffuse airspace disease right none worrisome for pneumonia. Aspiration should be considered. These findings have progressed slightly compared to CT chest 03/11/2017 Modified Barium Swallow 03/15/17 00:00 IMPRESSION: LARYNGEAL PENETRATION DESCRIBED.PLEASE SEE SPEECH PATHOLOGIST REPORT FOR OTHER FINDINGS AND RECOMMENDATIONS. Assessment & Plan - Diagnosis (1) Acute hypoxemic respiratory failure Is this a current diagnosis for this admission?: Yes (2) Hyponatremia Is this a current diagnosis for this admission?: Yes (3) Pneumonia Qualifiers: Pneumonia type: aspiration pneumonia Laterality: bilateral Lung location : upper lobe of lung Is this a current diagnosis for this admission?: Yes (4) Sepsis Qualifiers: Sepsis type: sepsis due to unspecified organism Qualified Code(s): A41.9 - Sepsis, unspecified organism Is this a current diagnosis for this admission?: Yes (5) Ambulatory dysfunction Is this a current diagnosis for this admission?: Yes (6) CVA, old, dysphagia Is this a current diagnosis for this admission?: Yes (7) Do not resuscitate Is this a current diagnosis for this admission?: Yes (8) Hypertension Qualifiers: Hypertension type: essential hypertension Qualified Code(s): I10 - Essential (primary) hypertension Is this a current diagnosis for this admission?: Yes (9) Diabetes mellitus Qualifiers: Diabetes mellitus type: type 2 Diabetes mellitus complication status: with unspecified complications Diabetes mellitus jail insulin use: without jail use Qualified Code(s): E11.8 - Type 2 diabetes mellitus with unspecified complications Is this a current diagnosis for this admission?: Yes - Time Time Spent with patient: 25-34 minutes - Plan Summary Plan Summary: Continue antibiotics to complete a 10 day course, nebulizer treatments. Continue aspiration precautions and modified diet. Continue Xanax and Haldol as needed and risperidone at bedtime.
[2017-03-20] MEDS: SENNOSIDES/DOCUSATE 8.6-50 MG 1 EACH TABLET PO SCH (21:15)
[2017-03-20] MEDS: DIAZEPAM 5 MG TABLET PO SCH (21:16)
[2017-03-20] MEDS: ALPRAZOLAM 0.5 MG TABLET PO SCH (21:17)
[2017-03-20] MEDS: LIDOCAINE 5% (700 MG) TRANSDERMAL ADH..PATCH TP SCH (21:17)
[2017-03-21] MEDS: PIPERACILLIN SODIUM/TAZOBACTAM 3.375 GM in NORMAL SALINE 100 ML IV SCH ×5 (00:39→23:04)
[2017-03-21] MEDS: LEVALBUTEROL HCL NEB 0.63 MG/3 ML AMPUL NEB SCH ×3 (07:45→20:57)
[2017-03-21] MEDS: HYOSCYAMINE SULFATE 0.125 MG TABLET PO SCH ×3 (08:38→16:01)
[2017-03-21] MEDS: ASPIRIN 325 MG TABLET PO SCH (09:51)
[2017-03-21] MEDS: LACTOBACILLUS ACIDOPHILUS 250 MG TAB PO SCH ×2 (09:52→18:00)
[2017-03-21] MEDS: GUAIFENESIN 600 MG TABLET.SA PO SCH ×2 (09:54→21:42)
[2017-03-21] MEDS: DOCUSATE SODIUM 100 MG CAPSULE PO SCH ×2 (09:54→17:05)
[2017-03-21] MEDS: POLYETHYLENE GLYCOL 3350 POWDER 17 GM/1 PACKET PO SCH (09:55)
[2017-03-21] MEDS: ENOXAPARIN SODIUM INJ 30 MG/0.3 ML DISP.SYRIN SUBCUT SCH (09:55)
[2017-03-21] MEDS: ATENOLOL 50 MG TABLET PO SCH (11:46)
[2017-03-21] MEDS: TIMOLOL MALEATE 0.5% OPH SOLN 5 ML OS SCH (11:47)
[2017-03-21] MEDS: PHARMACY COMMUNICATION ORDER MC SCH (11:55)
--- NOTE | 2017-03-21 15:57 | PDOC PROGRESS REPORT ---
Subjective Progress Note for:: 03/21/17 Subjective:: 81-year-old gentleman who has been on home hospice three times in the past due to aspiration pneumonia, but outlived it. He presented again with aspiration pneumonia. He has been improving with a modified diet aspiration precautions and antibiotics. His WBC count is normal. He would benefit from subacute rehabilitation at a long term facility. The patient was having some agitation over the past few nights but has markedly improved with bedtime Xanax and risperidone in the afternoon. He is doing well and has no complaints. His daughter and are at the bedside and plan of care was discussed with them. Awaiting SNF placement. Reason For Visit: PNEUMONIA, ACUTE HYPOXEMIC RESPIRATORY FAILURE Physical Exam Vital Signs: Temp Pulse Resp BP Pulse Ox 97.6 F 60 16 140/70 H 92 03/21/17 08:04 03/21/17 14:00 03/21/17 13:41 03/21/17 08:04 03/21/17 08:04 Intake & Output 03/20/17 03/21/17 03/22/17 06:59 06:59 06:59 Intake Total 757 876 Output Total 1450 500 Balance -693 376 Weight 74.4 kg 74 kg Additional comments: Elderly gentleman lying comfortably in bed HEENT: Left corneal opacification in the left eye. Moist pink oropharyngeal mucosa with no lesions Neck is supple trachea is midline Lungs: Auscultation bilaterally, normal respiratory effort Cardiac: S1-S2 regular no peripheral edema no cyanosis no calf tenderness Abdomen: Soft, no focal tenderness, normal bowel sounds Skin: Warm and dry Results Laboratory Results: 03/20/17 05:48 03/20/17 05:48 Impressions: Chest CT 03/15/17 00:00 IMPRESSION: Diffuse airspace disease right none worrisome for pneumonia. Aspiration should be considered. These findings have progressed slightly compared to CT chest 03/11/2017 Modified Barium Swallow 03/15/17 00:00 IMPRESSION: LARYNGEAL PENETRATION DESCRIBED.PLEASE SEE SPEECH PATHOLOGIST REPORT FOR OTHER FINDINGS AND RECOMMENDATIONS. Assessment & Plan - Diagnosis (1) Acute hypoxemic respiratory failure Is this a current diagnosis for this admission?: Yes (2) Hyponatremia Is this a current diagnosis for this admission?: Yes (3) Pneumonia Qualifiers: Pneumonia type: aspiration pneumonia Laterality: bilateral Lung location : upper lobe of lung Is this a current diagnosis for this admission?: Yes (4) Sepsis Qualifiers: Sepsis type: sepsis due to unspecified organism Qualified Code(s): A41.9 - Sepsis, unspecified organism Is this a current diagnosis for this admission?: Yes (5) Ambulatory dysfunction Is this a current diagnosis for this admission?: Yes (6) CVA, old, dysphagia Is this a current diagnosis for this admission?: Yes (7) Do not resuscitate Is this a current diagnosis for this admission?: Yes (8) Hypertension Qualifiers: Hypertension type: essential hypertension Qualified Code(s): I10 - Essential (primary) hypertension Is this a current diagnosis for this admission?: Yes (9) Diabetes mellitus Qualifiers: Diabetes mellitus type: type 2 Diabetes mellitus complication status: with unspecified complications Diabetes mellitus intermediate insulin use: without manager terminal use Qualified Code(s): E11.8 - Type 2 diabetes mellitus with unspecified complications Is this a current diagnosis for this admission?: Yes - Time Time Spent with patient: 25-34 minutes - Plan Summary Plan Summary: Complete 10 days of Zosyn. Today is day 8. Continue aspiration precautions and modified diet. Continue Xanax and Haldol as needed and risperidone at bedtime.
[2017-03-21] MEDS: ACETAMINOPHEN 325 MG TABLET PO PRN (16:01)
[2017-03-21] MEDS: DIAZEPAM 5 MG TABLET PO SCH (21:41)
[2017-03-21] MEDS: ALPRAZOLAM 0.5 MG TABLET PO SCH (21:41)
[2017-03-21] MEDS: SENNOSIDES/DOCUSATE 8.6-50 MG 1 EACH TABLET PO SCH (21:41)
[2017-03-21] MEDS: LIDOCAINE 5% (700 MG) TRANSDERMAL ADH..PATCH TP SCH (21:46)
[2017-03-22] MEDS: PIPERACILLIN SODIUM/TAZOBACTAM 3.375 GM in NORMAL SALINE 100 ML IV SCH ×4 (05:27→23:28)
[2017-03-22] MEDS: LEVALBUTEROL HCL NEB 0.63 MG/3 ML AMPUL NEB SCH ×3 (08:25→20:44)
[2017-03-22] MEDS: HYOSCYAMINE SULFATE 0.125 MG TABLET PO SCH ×3 (08:59→17:43)
[2017-03-22] MEDS: ACETAMINOPHEN 325 MG TABLET PO PRN (09:00)
[2017-03-22] MEDS: POLYETHYLENE GLYCOL 3350 POWDER 17 GM/1 PACKET PO SCH (09:06)
[2017-03-22] MEDS: DOCUSATE SODIUM 100 MG CAPSULE PO SCH ×2 (09:06→17:27)
[2017-03-22] MEDS: ENOXAPARIN SODIUM INJ 30 MG/0.3 ML DISP.SYRIN SUBCUT SCH (09:08)
[2017-03-22] MEDS: ASPIRIN 325 MG TABLET PO SCH (09:09)
[2017-03-22] MEDS: LACTOBACILLUS ACIDOPHILUS 250 MG TAB PO SCH ×2 (09:09→17:44)
[2017-03-22] MEDS: GUAIFENESIN 600 MG TABLET.SA PO SCH ×2 (09:10→22:14)
[2017-03-22] MEDS: ATENOLOL 50 MG TABLET PO SCH (09:10)
[2017-03-22] MEDS: TIMOLOL MALEATE 0.5% OPH SOLN 5 ML OS SCH (09:11)
[2017-03-22] MEDS: PHARMACY COMMUNICATION ORDER MC SCH (09:13)
[2017-03-22] MEDS: DIAZEPAM 5 MG TABLET PO SCH (22:13)
[2017-03-22] MEDS: SENNOSIDES/DOCUSATE 8.6-50 MG 1 EACH TABLET PO SCH (22:14)
[2017-03-22] MEDS: LIDOCAINE 5% (700 MG) TRANSDERMAL ADH..PATCH TP SCH (22:14)
[2017-03-22] MEDS: ALPRAZOLAM 0.5 MG TABLET PO SCH (22:14)
--- NOTE | 2017-03-22 23:39 | RADIOLOGY REPORT (SQ) ---
EXAM DESCRIPTION: CHEST PA/LAT COMPLETED DATE/TIME: 03/22/2017 10:50 pm REASON FOR STUDY: pneumonia COMPARISON: 02/10/2016 NUMBER OF VIEWS: Two view. TECHNIQUE: Frontal and lateral radiographic views of the chest acquired. LIMITATIONS: None. FINDINGS: LUNGS AND PLEURA: Mild Peribronchial cuffing and scattered interstitial changes. No dense consolidation, effusion, or pneumothorax. MEDIASTINUM AND HILAR STRUCTURES: Stable. HEART AND VASCULAR STRUCTURES: Stable. BONES: No acute findings. HARDWARE: None in the chest. OTHER: No other significant finding. IMPRESSION: No dense consolidation or pleural effusion. Interstitial changes and bronchial wall thi ckening suggesting atypical infectious process. TECHNICAL DOCUMENTATION: JOB ID: [id number] [place]-72 2010 [employer]- All Rights Reserved
--- NOTE | 2017-03-22 23:44 | RADIOLOGY REPORT (SQ) ---
EXAM DESCRIPTION: CT HEAD WITHOUT COMPLETED DATE/TIME: 03/22/2017 10:42 pm REASON FOR STUDY: Falling to Left side COMPARISON: 02/10/2016 TECHNIQUE: Axial images acquired through the brain without intravenous contrast. Images reviewed wi th bone, brain and subdural windows. Images stored on PACS. All CT scanners at this facility use dose modulation, iterative reconstruction, and/or weight based d osing when appropriate to reduce radiation dose to as low as reasonably achievable (ALARA). [facility]: Dose Right [facility]: CareDose [facility]: Dose Right [facility]: Teradose 4D [facility]: Smart Technologies RADIATION DOSE: CT Rad equipment meets quality standard of care and radiation dose reduction techniq ues were employed. CTDIvol: 55.2 mGy. DLP: 974 mGy-cm.mGy. LIMITATIONS: None. FINDINGS: VENTRICLES: Stable. CEREBRUM: No masses. No hemorrhage. No midline shift. Areas of low density in the white matter, mi ldly increased, due to chronic ischemic change. No evidence for acute infarction. CEREBELLUM: No masses. No hemorrhage. No alteration of density. No evidence for acute infarction. EXTRAAXIAL SPACES: Age-related involutional change. No fluid collections. No masses. ORBITS AND GLOBE: No intra- or extraconal masses. Normal contour of globe without masses. CALVARIUM: No fracture. PARANASAL SINUSES: No fluid or mucosal thickening. SOFT TISSUES: No mass or hematoma. OTHER: Right mastoid effusion. IMPRESSION: Right mastoid effusion. CHRONIC CHANGES OF ATROPHY AND MICROVASCULAR ISCHEMIA. NO ACUT E PROCESS. EVIDENCE OF ACUTE STROKE: NO. TECHNICAL DOCUMENTATION: JOB ID: [id number] [place]-72 Quality ID # [id number]: Final reports with documentation of one or more dose reduction techniques (e.g., Au tomated exposure control, adjustment of the mA and/or kV according to patient size, use of iterative reconstruction technique) 2010 [employer] (ABAM)- All Rights Reserved
[2017-03-23 05:00] VITALS: BP 129/78
[2017-03-23] MEDS: PIPERACILLIN SODIUM/TAZOBACTAM 3.375 GM in NORMAL SALINE 100 ML IV SCH ×2 (06:00→12:54)
--- NOTE | 2017-03-23 06:51 | PDOC PROGRESS REPORT ---
Subjective Progress Note for:: 03/23/17 Subjective:: Pt's daughter states that he has been leaning to the left. Daughter states that he is doing much better. Pt states that he feels better. Reason For Visit: PNEUMONIA, ACUTE HYPOXEMIC RESPIRATORY FAILURE Physical Exam Vital Signs: Temp Pulse Resp BP Pulse Ox 97.5 F 60 18 129/78 H 100 03/23/17 03:57 03/23/17 03:57 03/23/17 03:57 03/23/17 03:57 03/23/17 03:57 Intake & Output 03/21/17 03/22/17 03/23/17 06:59 06:59 06:59 Intake Total 907 990 1250 Output Total 500 1200 1000 Balance 376 -655 0 Weight 74 kg 73.7 kg 75.1 kg General appearance: PRESENT: no acute distress, well-developed, well-nourished Head exam: PRESENT: atraumatic, normocephalic Eye exam: PRESENT: conjunctiva pink, EOMI. ABSENT: scleral icterus Ear exam: PRESENT: normal external ear exam Mouth exam: PRESENT: moist, tongue midline Neck exam: ABSENT: carotid bruit, JVD, lymphadenopathy, thyromegaly Respiratory exam: PRESENT: clear to auscultation monika, other - diminished at bases. ABSENT: rales, rhonchi, wheezes Cardiovascular exam: PRESENT: RRR. ABSENT: diastolic murmur, rubs, systolic murmur Pulses: PRESENT: normal dorsalis pedis pul Vascular exam: PRESENT: normal capillary refill GI/Abdominal exam: PRESENT: normal bowel sounds, soft. ABSENT: distended, guarding, mass, organolmegaly, rebound, tenderness Rectal exam: PRESENT: deferred Extremities exam: PRESENT: full ROM. ABSENT: calf tenderness, clubbing, pedal edema Neurological exam: PRESENT: alert, altered, oriented to person Psychiatric exam: PRESENT: appropriate affect, normal mood. ABSENT: homicidal ideation, suicidal ideation Skin exam: PRESENT: dry, intact, warm. ABSENT: cyanosis, rash Results Laboratory Results: 03/20/17 05:48 03/20/17 05:48 Impressions: Chest CT 03/15/17 00:00 IMPRESSION: Diffuse airspace disease right none worrisome for pneumonia. Aspiration should be considered. These findings have progressed slightly compared to CT chest 03/11/2017 Modified Barium Swallow 03/15/17 00:00 IMPRESSION: LARYNGEAL PENETRATION DESCRIBED.PLEASE SEE SPEECH PATHOLOGIST REPORT FOR OTHER FINDINGS AND RECOMMENDATIONS. Chest X-Ray 03/22/17 00:00 IMPRESSION: No dense consolidation or pleural effusion. Interstitial changes and bronchial wall thickening suggesting atypical infectious process. Head CT 03/22/17 00:00 IMPRESSION: Right mastoid effusion. CHRONIC CHANGES OF ATROPHY AND MICROVASCULAR ISCHEMIA. NO ACUTE PROCESS. EVIDENCE OF ACUTE STROKE: NO. Assessment & Plan - Diagnosis (1) Acute hypoxemic respiratory failure Is this a current diagnosis for this admission?: Yes Plan: Suspect Aspiration Pneumonia: Zosyn. (2) Pneumonia Qualifiers: Pneumonia type: aspiration pneumonia Laterality: bilateral Lung location : upper lobe of lung Is this a current diagnosis for this admission?: Yes Plan: Suspect Aspiration Pneumonia Presumed Gram Negative Organism: Will continue Zosyn. (3) Dehydration Is this a current diagnosis for this admission?: Yes Plan: resolved. (4) Hypercalcemia Is this a current diagnosis for this admission?: Yes Plan: in setting of Dehydration: Resolved. (5) Hyponatremia Is this a current diagnosis for this admission?: Yes Plan: in setting of Dehydration: Will continue IVFs. (6) CVA, old, dysphagia Is this a current diagnosis for this admission?: Yes Plan: supportive care. Will check CT of Head for possible CVA. (7) Diabetes mellitus Qualifiers: Diabetes mellitus type: type 2 Diabetes mellitus complication status: with unspecified complications Diabetes mellitus hair worker insulin use: without jail use Qualified Code(s): E11.8 - Type 2 diabetes mellitus with unspecified complications Is this a current diagnosis for this admission?: Yes Plan: Will continue SSI. (8) Dysphasia S/P CVA (cerebrovascular accident) Is this a current diagnosis for this admission?: Yes Plan: Will continue current diet. (9) Gastroesophageal reflux disease Qualifiers: Esophagitis presence: esophagitis presence not specified Qualified Code(s) : K21.9 - Gastro-esophageal reflux disease without esophagitis Is this a current diagnosis for this admission?: Yes Plan: PPI (10) Hypertension Qualifiers: Hypertension type: essential hypertension Qualified Code(s): I10 - Essential (primary) hypertension Is this a current diagnosis for this admission?: Yes Plan: Will monitor. (11) DVT prophylaxis Is this a current diagnosis for this admission?: Yes Plan: SCDs - Time Time Spent with patient: 15-24 minutes
[2017-03-23 07:01] LABS: ABSOLUTE BASOPHILS # (AUTO) 0.1 10^3/uL (0.0-0.2); ABSOLUTE EOSINOPHILS # (AUTO) 0.5 10^3/uL (0.0-0.6); ABSOLUTE LYMPHOCYTES (AUTO) 1.8 10^3/uL (0.5-4.7); ABSOLUTE MONOCYTES (AUTO) 0.8 10^3/uL (0.1-1.4); ABSOLUTE NEUT (AUTO) 6.3 10^3/uL (1.7-8.2); BASOPHILS % (AUTO) 1.1 % (0-2); EOSINOPHILS % (AUTO) 5.6 % (0-6); HEMATOCRIT 44.6 % (37.9-51.0); HEMOGLOBIN 14.5 g/dL (13.5-17.0); LYMPHOCYTES % (AUTO) 18.8 % (13-45); MEAN CORPUSCULAR HEMOGLOBIN 29.1 pg (27.0-33.4); MEAN CORPUSCULAR HGB CONC 32.4 g/dL (32.0-36.0); MEAN CORPUSCULAR VOLUME 90 fl (80-97); MONOCYTES % (AUTO) 8.4 % (3-13); PLATELET COUNT 256 10^3/uL (150-450); RED BLOOD COUNT 4.97 10^6/uL (4.35-5.55); RED CELL DISTRIBUTION WIDTH 13.2 % (11.5-14.0); SEGMENTED NEUTROPHILS % (AUTO) 66.1 % (42-78); TOTAL CELLS COUNTED % (AUTO) 100 %; WHITE BLOOD COUNT 9.5 10^3/uL (4.0-10.5)
[2017-03-23 07:13] LABS: ALANINE AMINOTRANSFERASE 47 U/L (21-72); ALBUMIN 3.6 g/dL (3.5-5.0); ALKALINE PHOSPHATASE 117 U/L (38-126); ANION GAP 9 (5-19); ASPARTATE AMINO TRANSFERASE 48 U/L (17-59); BILIRUBIN,DIRECT 0.4 mg/dL (0.0-0.4); BILIRUBIN,TOTAL 0.6 mg/dL (0.2-1.3); BLOOD UREA NITROGEN 14 mg/dL (7-20); CALCIUM 9.9 mg/dL (8.4-10.2); CARBON DIOXIDE 30 mmol/L (22-30); CHLORIDE 103 mmol/L (98-107); GLUCOSE 103 mg/dL (75-110); POTASSIUM 3.9 mmol/L (3.6-5.0); SODIUM 141.6 mmol/L (137-145); TOTAL PROTEIN 7.3 g/dL (6.3-8.2)
[2017-03-23] MEDS: LEVALBUTEROL HCL NEB 1.25 MG/3 ML AMPUL NEB PRN (08:34)
[2017-03-23] MEDS: LEVALBUTEROL HCL NEB 0.63 MG/3 ML AMPUL NEB SCH (08:34)
[2017-03-23] MEDS: ACETAMINOPHEN 325 MG TABLET PO PRN ×2 (09:05→14:11)
[2017-03-23] MEDS: HYOSCYAMINE SULFATE 0.125 MG TABLET PO SCH ×2 (09:05→12:54)
[2017-03-23] MEDS: LACTOBACILLUS ACIDOPHILUS 250 MG TAB PO SCH (09:09)
[2017-03-23] MEDS: ENOXAPARIN SODIUM INJ 30 MG/0.3 ML DISP.SYRIN SUBCUT SCH (09:09)
[2017-03-23] MEDS: GUAIFENESIN 600 MG TABLET.SA PO SCH (09:09)
[2017-03-23] MEDS: ASPIRIN 325 MG TABLET PO SCH (09:09)
[2017-03-23] MEDS: ATENOLOL 50 MG TABLET PO SCH (09:11)
[2017-03-23] MEDS: TIMOLOL MALEATE 0.5% OPH SOLN 5 ML OS SCH (09:14)
[2017-03-23] MEDS: POLYETHYLENE GLYCOL 3350 POWDER 17 GM/1 PACKET PO SCH (09:14)
[2017-03-23] MEDS: DOCUSATE SODIUM 100 MG CAPSULE PO SCH (09:14)
[2017-03-23] MEDS: PHARMACY COMMUNICATION ORDER MC SCH (09:14)
--- NOTE | 2017-03-23 13:24 | PDOC DISCHARGE SUMMARY ---
General - Admit/Disc Date/PCP Admission Date/Primary Care Provider: 03/13/17 21:39 Discharge Date: 03/23/17 - Discharge Diagnosis (1) Acute hypoxemic respiratory failure Is this a current diagnosis for this admission?: Yes Summary: In setting of aspiration pneumonia gram negative organism: Patient was placed on Zosyn and then transitioned over to Levaquin. (2) Pneumonia Is this a current diagnosis for this admission?: Yes Summary: Secondary aspiration pneumonia: Patient was placed on Zosyn and then transitioned over to Levaquin. Patient's daughter notes that this will be a chronic issue for patient. (3) Dehydration Is this a current diagnosis for this admission?: Yes Summary: Patient was given IV fluids. Patient's dehydration has resolved. (4) Hypercalcemia Is this a current diagnosis for this admission?: Yes Summary: In setting of dehydration: Resolved after volume expansion. (5) Hyponatremia Is this a current diagnosis for this admission?: Yes Summary: In setting of dehydration: Resolved with IV fluid administration. (6) CVA, old, dysphagia Is this a current diagnosis for this admission?: Yes Summary: Supportive care. (7) Diabetes mellitus Is this a current diagnosis for this admission?: Yes Summary: We will continue sliding scale insulin (8) Dysphasia S/P CVA (cerebrovascular accident) Is this a current diagnosis for this admission?: Yes Summary: mechanical soft diet with ground meats and regular liquids. (9) Gastroesophageal reflux disease Is this a current diagnosis for this admission?: Yes Summary: PPI (10) Hypertension Is this a current diagnosis for this admission?: Yes Summary: Will continue Atenolol. - Additional Information Resuscitation Status: Do Not Resuscitate Discharge Diet: Cardiac, Diabetic Discharge Activity: Activity As Tolerated Prescriptions: Alprazolam [Xanax 0.5 mg Tablet] 0.5 mg PO QHS #5 tablet Diazepam [Valium 5 mg Tablet] 5 mg PO QHS #5 tablet Levofloxacin [Levaquin 750 mg Tablet] 750 mg PO DAILY #5 tablet Home Medications: Aspirin [Aspirin 325 mg Tablet] 325 mg PO QHS 03/14/17 Aspirin [Aspirin EC] 81 mg PO DAILY 03/14/17 Atenolol [Tenormin] 25 mg PO DAILY 03/14/17 Cetirizine HCl [Zyrtec 10 mg Tablet] 10 mg PO DAILY 03/14/17 Famciclovir [Famvir] 250 mg PO Q12 MDD STARTED 1/12 AM FOR 5DAYS 03/14/17 Hyoscyamine Sulfate [Levsin 0.125 Tablet] 0.125 mg PO MEALS 03/14/17 Omeprazole 40 mg PO DAILY 03/14/17 Timolol Maleate [Timoptic 0.5% Oph Soln 5 ml] 1 drop OS DAILY 03/14/17 Acetaminophen [Tylenol 325 mg Tablet] 650 mg PO Q4HP PRN tablet 03/23/17 Alprazolam [Xanax 0.5 mg Tablet] 0.5 mg PO QHS #5 tablet 03/23/17 Diazepam [Valium 5 mg Tablet] 5 mg PO QHS #5 tablet 03/23/17 Insulin Lispro [Humalog Insulin (Lispro) 100 unit/mL] 0 - 12 unit SUBCUT BIDP PRN unit 03/23/17 Levalbuterol HCl [Xopenex Neb 0.63 mg/3 ml Ampul] 0.63 mg NEB [id number] vial.neb 03/23/17 Levofloxacin [Levaquin 750 mg Tablet] 750 mg PO DAILY #5 tablet 03/23/17 Lidocaine [Lidoderm 5% (700 mg) Transdermal Patch] 2 patch TP QHS adh..patch Polyethylene Glycol 3350 [Miralax Powder 17 gm/Packet] 17 gm PO DAILY powd.pack 03/23/17 Sennosides/Docusate 8.6-50 mg [Senna Plus Tablet] 2 each PO QHS tablet History of Present Illness Patient complains of: Shortness of breath History of Present Illness: IKE MILLAN is a 81 year old male sent with hospital with complaint of shortness of breath and fever. Patient was found to have evidence of aspiration pneumonia. Patient has CT that actually helped confirm aspiration pneumonia. Daughter had also reported that patient had been choking at home after a fall that occurred. Patient was placed on Zosyn and is continued to demonstrate significant improvement. Patient has worked with PT OT here in our facility and the recommendation was for patient to go to subacute rehab. Patient did have a modified barium swallow and speech therapy recommended that patient be placed on mechanical soft diet with ground meat. Patient was noted to be dehydrated which resolved with IV fluids and patient was noted to have elevated calcium which also improved with IV fluid administration. Patient's CODE STATUS is DNR and daughter is aware that patient will continue to have episodes of aspiration in the future. Patient's daughter is very practical and fully understands patient's medical condition. Patient is being [facility]. Hospital Course Hospital Course: IKE MILLAN is a 81 year old male sent with hospital with complaint of shortness of breath and fever. Patient was found to have evidence of aspiration pneumonia. Patient has CT that actually helped confirm aspiration pneumonia. Daughter had also reported that patient had been choking at home after a fall that occurred. Patient was placed on Zosyn and is continued to demonstrate significant improvement. Patient has worked with PT OT here in our facility and the recommendation was for patient to go to subacute rehab. Patient did have a modified barium swallow and speech therapy recommended that patient be placed on mechanical soft diet with ground meat. Patient was noted to be dehydrated which resolved with IV fluids and patient was noted to have elevated calcium which also improved with IV fluid administration. Patient's CODE STATUS is DNR and daughter is aware that patient will continue to have episodes of aspiration in the future. Patient's daughter is very practical and fully understands patient's medical condition. Patient is being transferred [facility]. Physical Exam Vital Signs: Temp Pulse Resp BP Pulse Ox 97.5 F 64 16 129/78 H 92 03/23/17 03:57 03/23/17 08:34 03/23/17 08:34 03/23/17 03:57 03/23/17 08:34 Intake & Output 03/22/17 03/23/17 03/24/17 06:59 06:59 06:59 Intake Total 545 1000 Output Total 1200 1000 Balance -655 0 Weight 73.7 kg 75.1 kg General appearance: PRESENT: no acute distress, well-developed, well-nourished Head exam: PRESENT: atraumatic, normocephalic Eye exam: PRESENT: conjunctiva pink, EOMI. ABSENT: scleral icterus Ear exam: PRESENT: normal external ear exam Mouth exam: PRESENT: moist, tongue midline Neck exam: ABSENT: carotid bruit, JVD, lymphadenopathy, thyromegaly Respiratory exam: PRESENT: clear to auscultation monika, rhonchi - At bases. ABSENT: rales Cardiovascular exam: PRESENT: RRR. ABSENT: diastolic murmur, rubs, systolic murmur Pulses: PRESENT: normal dorsalis pedis pul Vascular exam: PRESENT: normal capillary refill GI/Abdominal exam: PRESENT: normal bowel sounds, soft. ABSENT: distended, guarding, mass, organolmegaly, rebound, tenderness Rectal exam: PRESENT: deferred Extremities exam: PRESENT: full ROM. ABSENT: calf tenderness, clubbing, pedal edema Neurological exam: PRESENT: alert, awake, oriented to person, CN II-XII grossly intact. ABSENT: motor sensory deficit Psychiatric exam: PRESENT: appropriate affect, normal mood. ABSENT: homicidal ideation, suicidal ideation Skin exam: PRESENT: dry, intact, warm. ABSENT: cyanosis, rash Results Laboratory Results: 03/23/17 05:34 03/23/17 05:34 03/23/17 03/23/17 05:34 05:34 WBC 9.5 RBC 4.97 Hgb 14.5 Hct 44.6 MCV 90 MCH 29.1 MCHC 32.4 RDW 13.2 Plt Count 256 Seg Neutrophils % 66.1 Lymphocytes % 18.8 Monocytes % 8.4 Eosinophils % 5.6 Basophils % 1.1 Absolute Neutrophils 6.3 Absolute Lymphocytes 1.8 Absolute Monocytes 0.8 Absolute Eosinophils 0.5 Absolute Basophils 0.1 Sodium 141.6 Potassium 3.9 Chloride 103 Carbon Dioxide 30 Anion Gap 9 BUN 14 Creatinine 0.95 Est GFR ( Amer) > 60 Est GFR (Non-Af Amer) > 60 Glucose 103 Calcium 9.9 Total Bilirubin 0.6 AST 48 ALT 47 Alkaline Phosphatase 117 Total Protein 7.3 Albumin 3.6 Impressions: Chest CT 03/15/17 00:00 IMPRESSION: Diffuse airspace disease right none worrisome for pneumonia. Aspiration should be considered. These findings have progressed slightly compared to CT chest 03/11/2017 Modified Barium Swallow 03/15/17 00:00 IMPRESSION: LARYNGEAL PENETRATION DESCRIBED.PLEASE SEE SPEECH PATHOLOGIST REPORT FOR OTHER FINDINGS AND RECOMMENDATIONS. Chest X-Ray 03/22/17 00:00 IMPRESSION: No dense consolidation or pleural effusion. Interstitial changes and bronchial wall thickening suggesting atypical infectious process. Head CT 03/22/17 00:00 IMPRESSION: Right mastoid effusion. CHRONIC CHANGES OF ATROPHY AND MICROVASCULAR ISCHEMIA. NO ACUTE PROCESS. EVIDENCE OF ACUTE STROKE: NO. Plan Time Spent: Greater than 30 Minutes
== END 2017-03-23 14:29 | disposition short-term general hospital (02) | DRG 871 ==
LOC: ER 19:17 → EH 21:39 → 3S 03-14 19:10
PROVIDERS: ADMIT Family Medicine; ATTEND Family Medicine
PROC: 3E0F73Z Introduction of Anti-inflammatory into Respiratory Tract, Via Natural or Artificial Opening (ICD-10-PCS; principal; 2017-03-14)
DX: A41.9 Sepsis, unspecified organism (principal); J69.0 Pneumonitis due to inhalation of food and vomit; J96.01 Acute respiratory failure with hypoxia; E87.1 Hypo-osmolality and hyponatremia; E86.0 Dehydration; E83.52 Hypercalcemia; I69.391 Dysphagia following cerebral infarction; R13.10 Dysphagia, unspecified; I69.321 Dysphasia following cerebral infarction; K21.9 Gastro-esophageal reflux disease without esophagitis; E11.9 Type 2 diabetes mellitus without complications; I10 Essential (primary) hypertension; M19.90 Unspecified osteoarthritis, unspecified site; Z79.4 Long term (current) use of insulin; Z79.899 Other long term (current) drug therapy; Z79.82 Long term (current) use of aspirin; Z90.49 Acquired absence of other specified parts of digestive tract; Z87.891 Personal history of nicotine dependence; Z91.81 History of falling; Z78.1 Physical restraint status
CPT/HCPCS: 36415; 70450; 71045; 71046; 71250; 74230; 80048; 80053; 81001; 82803; 82962; 83605; 83735; 84100; 85025; 85610; 87040; 87070; 87086; 87205; 93005; 93010; 94640; 94799; 96372; 99285; G8978-GP; G8979-GP; G8996-GN; G8997-GN; J0696; J1630; J1650; J1885; J2543; J3490; J7030; J7614; J7620

== ENCOUNTER 2017-04-26 07:45 | Emergency (ER) | payer MEDICARE, BC ==
--- NOTE | 2017-04-26 08:27 | ER Document Report ---
ED Neuro Symptoms/Deficit - General Chief Complaint: S/S of Possible Stroke Stated Complaint: FACIAL DROOP AND WEAKNESS Time Seen by Provider: 04/26/17 08:07 Mode of Arrival: Stretcher Information source: Patient, Relative Notes: 81 years old male was brought in today with right-sided weakness involving facial right upper limb and right lower leg, noted early this morning around 630. 3:00 in the morning was checked by the creel operator at that time he was normal. When the creel operator will came up around 630 he had the right facial and right upper limb weakness. Subsequently EMS was called and the patient was brought in to the ED. Patient was examined at the door, sent directly to the CT. TRAVEL OUTSIDE OF THE [place] IN LAST 30 DAYS: No - HPI Patient complains to provider of: Facial Droop, Paralysis, Speech Impairment Symptoms are: No: Constant, Intermittent episodes, Worse/persistent, Noted on awakening Duration: denies: Better, Continues in ED, Gone now, More than 3 hrs Quality of pain: denies: No pain, Achy, Burning, Cramping, Dull, Fullness, Pressure, Sharp, Stabbing, Throbbing, Other Context: denies: None, Insect bite, Tick bite, Falling, Head injury, Other Loss of consciousness: No: No loss of consciousness, Unsure, Dazed, Brief ( seconds), Prolonged (minutes), Still comatose - Related Data Allergies/Adverse Reactions: onion Allergy (Verified 03/11/17 18:31) Past Medical History - General Information source: Patient, Relative - Social History Smoking Status: Never Smoker Cigarette use (# per day): No Chew tobacco use (# tins/day): No Frequency of alcohol use: Rare Drug Abuse: None Family History: DM, Hypertension - Past Medical History Cardiac Medical History: Reports: Hx Hypercholesterolemia, Hx Hypertension Pulmonary Medical History: Reports: Hx Pneumonia - ASPIRATION Neurological Medical History: Reports: Hx Cerebrovascular Accident - TIAs. 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 Psychiatric Medical History: Denies: Hx Depression Past Surgical History: Reports: Hx Abdominal Surgery - GTUBE REMOVED, Hx Cholecystectomy, Other - PEG tube and removal eye surgery--corneal transplant - Immunizations Hx Diphtheria, Pertussis, Tetanus Vaccination: Yes Hx Pneumococcal Vaccination: 11/29/15 Review of Systems - Review of Systems -: Yes ROS unobtainable due to patient's medical condition - Due to his current condition of stroke. Physical Exam - Notes Notes: PHYSICAL EXAMINATION: GENERAL: Facial weakness noted, he is alert able to communicate HEAD: Atraumatic, normocephalic. EYES: Pupils equal round and reactive to light, extraocular movements intact, sclera anicteric, conjunctiva are normal. ENT: Nares patent, oropharynx clear without exudates. Moist mucous membranes. NECK: Normal range of motion, supple without lymphadenopathy LUNGS: Breath sounds clear to auscultation bilaterally and equal. No wheezes rales or rhonchi. HEART: Regular rate and rhythm without murmurs ABDOMEN: Soft, nontender, nondistended abdomen. No guarding, no rebound. No masses appreciated. Musculoskeletal: Normal range of motion, no pitting or edema. No cyanosis. NEUROLOGICAL: Right facial weakness, poor gag reflex, tongue deviated towards the right side, right upper limb has a clear pronator drift though he was able to lift against gravity. Right lower limb has a weakness of 3/5 in intensity. Sensory appears diminished PSYCH: Normal mood, normal affect. SKIN: Warm, Dry, normal turgor, no rashes or lesions noted. Course - Re-evaluation Re-evalutation: 04/26/17 08:23 CT report was received at 815, [facility] at was contacted waiting neurology response for transfer. 04/26/17 08:45 Discussed the case with Dr. Acevedo, at 835, arrangements are made to transfer the patient - Laboratory Result Diagrams: 04/26/17 08:26 04/26/17 08:26 - Diagnostic Test Radiology reviewed: Image reviewed, Reports reviewed Radiology results interpreted by me: 04/26/17 08:45 CT of the head was reported by radiologist verbally as occipital bleed and infarct - EKG Interpretation by Me EKG shows normal: Sinus rhythm Rate: Normal Rhythm: NSR When compared to previous EKG there are: No significant change - Sinus rhythm at a rate of 64 bpm normal axis no acute ST elevation ST depression T-wave inversion noted. Normal cardiogram Critical Care Note - Critical Care Note Total time excluding time spent on procedures (mins): 60 - Management of stroke , review of EKG chest x-ray, discussion with transfer center and made arrangements to transfer. Discharge - Discharge Referrals: KAYLA HANDLEY MD [Primary Care Provider] - Follow up as needed
--- NOTE | 2017-04-26 08:30 | RADIOLOGY REPORT (SQ) ---
EXAM DESCRIPTION: CHEST SINGLE VIEW COMPLETED DATE/TIME: 04/26/2017 7:56 am REASON FOR STUDY: S/S srtoke COMPARISON: 03/22/2017, 03/13/2017, chest films 03/11/2017 CT chest EXAM PARAMETERS: NUMBER OF VIEWS: One view. TECHNIQUE: Single frontal radiographic view of the chest acquired. RADIATION DOSE: NA LIMITATIONS: None. FINDINGS: LUNGS AND PLEURA: No opacities, masses or pneumothorax. No pleural effusion. MEDIASTINUM AND HILAR STRUCTURES: No masses. Contour normal. HEART AND VASCULAR STRUCTURES: Heart normal in size. Normal vasculature. BONES: No acute findings. HARDWARE: Clips right upper quadrant post cholecystectomy OTHER: No other significant finding. IMPRESSION: NO ACUTE RADIOGRAPHIC FINDING IN THE CHEST. TECHNICAL DOCUMENTATION: JOB ID: [id number] [employer]- All Rights Reserved Reading location - IP/workstation name: [email or web address]
[2017-04-26 08:38] LABS: ABSOLUTE BASOPHILS # (AUTO) 0.1 10^3/uL (0.0-0.2); ABSOLUTE EOSINOPHILS # (AUTO) 0.1 10^3/uL (0.0-0.6); ABSOLUTE LYMPHOCYTES (AUTO) 2.3 10^3/uL (0.5-4.7); ABSOLUTE MONOCYTES (AUTO) 0.8 10^3/uL (0.1-1.4); ABSOLUTE NEUT (AUTO) 8.2 10^3/uL (1.7-8.2); BASOPHILS % (AUTO) 1.1 % (0-2); EOSINOPHILS % (AUTO) 0.5 % (0-6); HEMATOCRIT 43.9 % (37.9-51.0); HEMOGLOBIN 14.5 g/dL (13.5-17.0); LYMPHOCYTES % (AUTO) 20.3 % (13-45); MEAN CORPUSCULAR HEMOGLOBIN 29.1 pg (27.0-33.4); MEAN CORPUSCULAR HGB CONC 33.1 g/dL (32.0-36.0); MEAN CORPUSCULAR VOLUME 88 fl (80-97); MONOCYTES % (AUTO) 6.7 % (3-13); PLATELET COUNT 287 10^3/uL (150-450); RED CELL DISTRIBUTION WIDTH 14.7 % (11.5-14.0); SEGMENTED NEUTROPHILS % (AUTO) 71.4 % (42-78); TOTAL CELLS COUNTED % (AUTO) 100 %; WHITE BLOOD COUNT 11.5 10^3/uL (4.0-10.5)
--- NOTE | 2017-04-26 08:41 | RADIOLOGY REPORT (SQ) ---
EXAM DESCRIPTION: CT HEAD WITHOUT COMPLETED DATE/TIME: 04/26/2017 7:55 am REASON FOR STUDY: S/S srtoke COMPARISON: CT of head without contrast. 03/22/2017. MRI of the head without contrast 02/10/2016. TECHNIQUE: Axial images acquired through the brain without intravenous contrast. Images reviewed wi th bone, brain and subdural windows. Images stored on PACS. All CT scanners at this facility use dose modulation, iterative reconstruction, and/or weight based d osing when appropriate to reduce radiation dose to as low as reasonably achievable (ALARA). [facility]: Dose Right [facility]: CareDose [facility]: Dose Right [facility]: Teradose 4D [facility]: Smart [employer] RADIATION DOSE: CT Rad equipment meets quality standard of care and radiation dose reduction techniq ues were employed. CTDIvol: 64.6 mGy. DLP: 1034 mGy-cm. mGy. LIMITATIONS: None. FINDINGS: VENTRICLES: Ventriculomegaly. CEREBRUM: There is evidence of edema within the right posterior temporal lobe and right occipital lob e consistent with changes of recent infarct. There is question of cortical increased attenuation rig ht occipital region with petechial hemorrhage not excluded. Confluent areas of decreased attenuation in subcortical and periventricular white matter consistent with chronic white matter change. CEREBELLUM: No masses. No hemorrhage. No alteration of density. No evidence for acute infarction. EXTRAAXIAL SPACES: Age related involutional change. ORBITS AND GLOBE: No intra- or extraconal masses. Normal contour of globe without masses. CALVARIUM: No fracture. PARANASAL SINUSES: There is mucosal thickening in the right mastoid process again noted consistent ch ronic inflammatory change. The left mastoid process and visualized paranasal sinuses demonstrate no significant abnormality. IMPRESSION: Findings consistent with subacute infarct right occipital region with cortical hemorrhag e not excluded. Chronic white matter changes. Chronic inflammatory change right mastoid process. EVIDENCE OF ACUTE STROKE: Subacute stroke. These findings were called to the patient's ED physician by Dr. Hussein Hendrickson at 0810 hours as a stroke al ert. COMMENT: Quality ID # [id number]: Final reports with documentation of one or more dose reduction techniques (e.g., Automated exposure control, adjustment of the mA and/or kV according to patient size, use of iterative reconstruction technique) TECHNICAL DOCUMENTATION: JOB ID: [id number] [employer]- All Rights Reserved Reading location - IP/workstation name: [email or web address]
[2017-04-26 08:43] LABS: INTERNATIONAL RATION (INR) 0.92
[2017-04-26 08:44] LABS: PARTIAL THROMBOPLASTIN TIME 33.2 SEC (23.5-35.8)
[2017-04-26 08:58] LABS: ALANINE AMINOTRANSFERASE 24 U/L (21-72); ALBUMIN 3.8 g/dL (3.5-5.0); ALKALINE PHOSPHATASE 82 U/L (38-126); ANION GAP 10 (5-19); ASPARTATE AMINO TRANSFERASE 24 U/L (17-59); BILIRUBIN,DIRECT 0.4 mg/dL (0.0-0.4); BILIRUBIN,TOTAL 1.3 mg/dL (0.2-1.3); BLOOD UREA NITROGEN 6 mg/dL (7-20); CALCIUM 9.7 mg/dL (8.4-10.2); CARBON DIOXIDE 24 mmol/L (22-30); CHLORIDE 105 mmol/L (98-107); CREATINE KINASE 32 U/L (55-170); GLUCOSE 121 mg/dL (75-110); POTASSIUM 4.1 mmol/L (3.6-5.0); SODIUM 139.2 mmol/L (137-145); TOTAL PROTEIN 7.2 g/dL (6.3-8.2)
[2017-04-26 09:10] LABS: CREATINE KINASE MB 1.64 ng/mL (<4.55); TROPONIN I 0.013 ng/mL
--- NOTE | 2017-04-26 13:07 | EKG REPORT ---
SEVERITY:- BORDERLINE ECG - SINUS RHYTHM, IRREGULAR RATE 60-88 D/T PACS NONSPECIFIC ST-T CHANGES- INFERIOR LEADS : Confirmed by: Lorenzo Rhoades MD 26-Apr-2017 13:06:16
[2017-04-26] MEDS ORDERED: ACETAMINOPHEN 650 MG SUPP.RECT PR ONE (13:13)
[2017-04-26 13:18] LABS: APPEARANCE,URINE CLEAR; BILIRUBIN,URINE NEGATIVE (NEGATIVE); COLOR,URINE YELLOW; GLUCOSE, URINE NEGATIVE (NEGATIVE); KETONES,URINE TRACE mg/dL (NEGATIVE); LEUKOCYTE ESTERASE,URINE NEGATIVE (NEGATIVE); NITRITE,URINE NEGATIVE (NEGATIVE); PROTEIN,URINE 30 mg/dL (NEGATIVE); URINE SPECIFIC GRAVITY 1.009; UROBILINOGEN,URINE NEGATIVE mg/dL (<2.0)
[2017-04-26 20:12] VITALS: BP 147/68
== END 2017-04-26 20:24 | disposition short-term general hospital (02) ==
LOC: ER 07:45
DX: I63.50 Cerebral infarction due to unspecified occlusion or stenosis of unspecified cerebral artery (principal); G81.91 Hemiplegia, unspecified affecting right dominant side; R47.9 Unspecified speech disturbances; I69.391 Dysphagia following cerebral infarction; R13.10 Dysphagia, unspecified; I10 Essential (primary) hypertension; E11.9 Type 2 diabetes mellitus without complications
CPT/HCPCS: 93005; 99291; 36415; 82553; 82962; 82550; 85025; 85610; 85730; 80053; 81001; 84484; 71045; 70450; 93010; A9270